=== PATIENT | male | born 1950 | race Caucasian/White ===

== ENCOUNTER → 2019-12-05 08:26 | Outpatient (BNVA) | payer MEDICARE, OTHER, SELFPAY | PROVIDERS: Family Provider Registered Nurse; PCP Registered Nurse; Visit Provider Registered Nurse | DX: E11.9 Type 2 diabetes mellitus without complications (principal) | CPT/HCPCS: 80053; 80061; 83036; 85025 ==

== ENCOUNTER 2020-04-27 | Outpatient (CLI) | payer MEDICARE, OTHER, SELFPAY ==
--- NOTE | 2020-04-27 11:16 | XRR_ITS ---
PROCEDURE INFORMATION: Exam: XR Left Ribs Exam date and time: 04/27/2020 11:43 AM Age: 69 years old Clinical indication: Pain; Other: Chest left ribs; Patient HX: Possible L side fractured ribs x 2 days; Additional info: Chest trauma TECHNIQUE: Imaging protocol: XR Left ribs. Views: 2 views. COMPARISON: No relevant prior studies available. FINDINGS: Bones/joints: Displaced fracture of the 6th and 7th ribs on the left. Subpulmonic effusion and adjacent airspace disease/atelectasis. XR/XR ribs LT 2V* [id number] IMPRESSION: Displaced fracture of the 6th and 7th ribs on the left laterally. Subpulmonic effusion and adjacent airspace disease/atelectasis. Pneumothorax not visualized although not excluded as a chest radiograph was not submitted. Correlate with prior CT chest versus chest radiograph.
--- NOTE | 2020-04-27 11:16 | XRR_ITS ---
PROCEDURE INFORMATION: Exam: XR Chest, 2 Views Exam date and time: 04/27/2020 11:43 AM Age: 69 years old Clinical indication: Left-sided chest pain; Patient HX: Possible left ribs fracture x 2 days; Additional info: Chest trama TECHNIQUE: Imaging protocol: XR of the chest Views: 2 views. COMPARISON: No relevant prior studies available. FINDINGS: Lungs: Mild atelectasis left lung base in the costophrenic angle. Airspace consolidation left retrocardiac region. Small amount of fluid in the subpulmonic region. Subtle lucency adjacent to the left heart border. Small apical pneumothorax. Subcutaneous emphysema adjacent to the fractured ribs on the left inferiorly. Pleural space: See Lungs finding. Heart/Mediastinum: Unremarkable. No cardiomegaly. Bones/joints: Unremarkable. XR/XR chest 2V* [id number] IMPRESSION: Mild atelectasis left lung base in the costophrenic angle. Airspace consolidation left retrocardiac region. Small amount of fluid in the subpulmonic region. Subtle lucency adjacent to the left heart border. Small apical pneumothorax. Subcutaneous emphysema adjacent to the fractured ribs on the left inferiorly.
== END 2020-04-27 23:00 | disposition home or self-care (01) ==
PROVIDERS: PCP Registered Nurse; Visit Provider Nurse Practitioner Family
DX: S22.42XA Multiple fractures of ribs, left side, initial encounter for closed fracture (principal); T79.7XXA Traumatic subcutaneous emphysema, initial encounter; X58.XXXA Exposure to other specified factors, initial encounter; R07.89 Other chest pain; J98.11 Atelectasis
CPT/HCPCS: 71046; 71100

== ENCOUNTER 2020-04-27 11:17 | Outpatient (CLI) | payer MEDICARE, OTHER, SELFPAY ==
--- NOTE | 2020-04-27 09:30 | CT_ITS ---
WS: [id number] CT CHEST TECHNIQUE: Contrast enhanced CT of the chest with coronal and sagittal reformatted images. CLINICAL INFORMATION: chest trauma COMPARISON: None. DLP: 919.[address] scans at [facility] use at least one of these dose optimization techniques: automat ed exposure control; mA and/or kV adjustment per patient size (includes targeted exams where dose is matched to clinical indication); or iterative reconstruction. FINDINGS: Multiple acute left-sided rib fractures left third, fourth, fifth, sixth, and seventh ribs anteriorly and laterally. Mild displacement of the left 6th and seventh rib fractures with associated subcutane ous emphysema and pleural fluid. No significant pneumothorax. Subsegmental atelectasis and partial co nsolidation left lower lobe with air bronchograms. Tiny right pleural effusion with subsegmental atel ectasis in the right lung base. Mild chronic emphysematous changes. TINY LEFT LATERAL APICAL AND ANTERIOR MEDIAL PNEUMOTHORAX MEASURING LESS THAN 10 MM IN MAXIMUM DIMENS ION. Normal thyroid gland. Normal caliber thoracic aorta. No mediastinal or hilar lymphadenopathy. No axil michael lymphadenopathy. Mild diffuse fatty infiltration the liver. Adrenal glands are normal. Small spl enule. Normal GE junction. Mild hypertrophic changes thoracic spine. Attempted JONNY Mariscal at 04/27/2020 11:56 AM. [facility] currently attempting to locate provider 04/27/2020 12:[address]/CT chest w con* [id number] IMPRESSION: 1. Multiple left-sided rib fractures described above with mild displacement of the 6th and seventh rib fractures. Tiny left pneumothorax. Recommend 12-24 pamela r interval follow-up with chest x-ray to ensure no progression. 2. Small left pleural effusion with partial consolidation and air bronchograms left lower lobe. 3. Small right pleural effusion with subsegmental atelectasis. 4. Mild chronic emphysematous changes. 5. Fatty liver
[2020-04-27 10:13] LABS: Blood Urea Nitrogen 16 mg/dL (8-23); Glomerular Filtration Rate 96.1 mL/min (90-130)
[2020-04-27] MEDS: iohexol 300 mg/mL 100 mL Btl IV (11:38)
== END 2020-04-27 11:18 | disposition home or self-care (01) ==
LOC: RAD 11:18
PROVIDERS: PCP Registered Nurse; Visit Provider Nurse Practitioner Family
DX: R93.89 Abnormal findings on diagnostic imaging of other specified body structures (principal); S22.42XA Multiple fractures of ribs, left side, initial encounter for closed fracture; X58.XXXA Exposure to other specified factors, initial encounter; J90 Pleural effusion, not elsewhere classified; J98.11 Atelectasis; K76.0 Fatty (change of) liver, not elsewhere classified; N28.9 Disorder of kidney and ureter, unspecified
CPT/HCPCS: 71260; 82565; 84520

== ENCOUNTER → 2020-06-16 09:19 | Outpatient (BNVA) | payer MEDICARE, OTHER, SELFPAY | PROVIDERS: PCP Registered Nurse; Visit Provider Registered Nurse | DX: E11.9 Type 2 diabetes mellitus without complications (principal) | CPT/HCPCS: 83036; 85025 ==

== ENCOUNTER 2020-12-14 15:27 | Outpatient (CLI) | payer MEDICARE, OTHER, SELFPAY ==
--- NOTE | 2020-12-14 15:45 | USCV_ITS ---
Eusebioyusra Mir Age: 70 Gender: M : 1950 Exam Date: 12/14/2020 15:49 Ordering Phys: Jag Gamez MD ([email or web address]) Technologist: Jennifer Arndt [place] [facility] [place]: aortic murmur BP: / HR: 70 Rhythm: Sinus Technical Quality: Fair MEASUREMENTS (Male / Female) Normal Values 2D ECHO LV Diastolic Diameter PLAX 5.1 cm 4.2 - 5.9 / 3.9 - 5.3 cm LV Systolic Diameter PLAX 3.1 cm LV Chamber Size 4.1 cm IVS Diastolic Thickness 1.4 cm 0.6 - 1.0 / 0.6 - 0.9 cm IVS Systolic Thickness 1.6 cm LVPW Diastolic Thickness 0.9 cm 0.6 - 1.0 / 0.6 - 0.9 cm LVPW Systolic Thickness 1.3 cm RV Chamber Size 3.1 cm LVOT Diameter 2.0 cm LV Ejection Fraction 2D Teich 69.8 % LV Ejection Fraction MOD 2C 67.9 % LV Ejection Fraction 2C AL 67.2 % LA Diameter 4.2 cm LA Width 3.4 cm LA Height 4.2 cm RA Width 3.2 cm RA Height 5.1 cm M-MODE LV Diastolic Diameter MM 5.2 cm 4.2 - 5.9 / 3.9 - 5.3 cm LV Systolic Diameter MM 3.1 cm LV Ejection Fraction MM Teich 70.4 % IVS Diastolic Thickness MM 1.4 cm 0.6 - 1.0 / 0.6 - 0.9 cm IVS Systolic Thickness MM 1.5 cm LVPW Diastolic Thickness MM 1.2 cm 0.6 - 1.0 / 0.6 - 0.9 cm LVPW Systolic Thickness MM 1.4 cm Aortic Annulus Diameter 3.4 cm LA Ao Ratio MM 1.3 MV E Point Septal Separation 0.3 cm DOPPLER AV Peak Velocity 218.0 cm/s LVOT Peak Velocity 95.0 cm/s AV Area Cont Eq vti 1.6 cm squared AV Area Cont Eq pk 1.4 cm squared MV Area PHT 3.0 cm squared Mitral E to A Ratio 1.0 MV E' Velocity 35.0 cm/s Mitral E to MV E' Ratio 6.3 Mitral E to LV E' Lateral Ratio 5.8 Mitral E to LV E' Septal Ratio 6.9 TR Peak Velocity 195.6 cm/s TR Peak Gradient 15.3 mmHg TR Mean Velocity 166.2 cm/s TR Mean Gradient 11.3 mmHg TR Velocity Time Integral 54.7 cm TV Peak E Velocity 59.0 cm/s PV Peak Velocity 70.0 cm/s RV Acceleration Time 0.1 s RV Ejection Time 0.3 s RV AcT/ET 0.3 FINDINGS Left Ventricle Normal left ventricular cavity size. Normal left ventricular systolic function. No regional wall motion abnormalities. Left ventricular ejection fraction is estimated at 70 %. Grade I/IV diastolic dysfunction (abnormal relaxation filling pattern), normal to mildly elevated filling pressures. Right Ventricle The right ventricle is normal in size and function. RVSP could not be calculated due to incomplete tricuspid regurgitation velocity profile. Right Atrium The right atrium is normal in size. Left Atrium The left atrium is normal in size. Mitral Valve Structurally normal mitral valve without significant stenosis or prolapse. There is no mitral regurgitation. Aortic Valve Moderate aortic valve calcification. Moderate aortic valve stenosis, mean gradient 10.5 mmHg, GINI 1.6 cm squared. Trace aortic valve regurgitation. Tricuspid Valve Trace tricuspid valve regurgitation. Pulmonic Valve Structurally normal pulmonic valve without significant stenosis. There is no pulmonic regurgitation. Pericardium Normal pericardium without effusion. Aorta Normal ascending aorta dimension. CONCLUSIONS 1-Normal left ventricular cavity size. Normal left ventricular systolic function. No regional wall motion abnormalities. Left ventricular ejection fraction is estimated at 70 %. Grade I/IV diastolic dysfunction (abnormal relaxation filling pattern), normal to mildly elevated filling pressures. 2-Moderate aortic valve calcification. Moderate aortic valve stenosis, mean gradient 10.5 mmHg, GINI 1.6 cm squared. Trace aortic valve regurgitation. 3-There is no pericardial effusion. 4-The right ventricle is normal in size and function. RVSP could not be calculated due to incomplete tricuspid regurgitation velocity profile. 5-Right atrial pressure is around 5 mm of mercury. 6-There are no prior echocardiogram studies to compare. Jag Gamez MD (Electronically Signed) Final Date: 16 December 2020 20:15 S
== END 2020-12-14 15:28 | disposition home or self-care (01) ==
LOC: US 15:29
PROVIDERS: PCP Registered Nurse; Visit Provider Internal Medicine Cardiovascular Disease
DX: I35.8 Other nonrheumatic aortic valve disorders (principal); I70.0 Atherosclerosis of aorta; I35.0 Nonrheumatic aortic (valve) stenosis
CPT/HCPCS: 93306

== ENCOUNTER → 2020-12-28 10:41 | Outpatient (BNVA) | payer MEDICARE, OTHER, SELFPAY | PROVIDERS: PCP Registered Nurse; Visit Provider Registered Nurse | DX: I10 Essential (primary) hypertension (principal); E11.9 Type 2 diabetes mellitus without complications | CPT/HCPCS: 80053; 80061; 83036; 85025 ==

== ENCOUNTER → 2020-12-30 08:37 | Outpatient (BNVA) | payer MEDICARE, OTHER, SELFPAY | PROVIDERS: PCP Registered Nurse; Visit Provider Registered Nurse | DX: E11.9 Type 2 diabetes mellitus without complications (principal) | CPT/HCPCS: 82043 ==

== ENCOUNTER → 2021-04-14 09:17 | Outpatient (BNVA) | payer MEDICARE, OTHER, SELFPAY | PROVIDERS: PCP Registered Nurse; Visit Provider Registered Nurse | DX: E11.9 Type 2 diabetes mellitus without complications (principal); N25.89 Other disorders resulting from impaired renal tubular function; I10 Essential (primary) hypertension | CPT/HCPCS: 80053; 83036 ==

== ENCOUNTER → 2021-10-24 09:17 | Outpatient (BNVA) | payer MEDICARE, OTHER, SELFPAY | PROVIDERS: PCP Registered Nurse; Visit Provider Registered Nurse | DX: E11.9 Type 2 diabetes mellitus without complications (principal) | CPT/HCPCS: 80053; 80061; 83036; 85025 ==

== ENCOUNTER → 2021-12-27 15:10 | Outpatient (BNVA) | payer MEDICARE, OTHER, SELFPAY | PROVIDERS: PCP Registered Nurse; Visit Provider Internal Medicine Cardiovascular Disease | DX: I25.10 Atherosclerotic heart disease of native coronary artery without angina pectoris (principal); I10 Essential (primary) hypertension; E11.9 Type 2 diabetes mellitus without complications | CPT/HCPCS: 99214 ==

== ENCOUNTER → 2022-04-18 10:26 | Outpatient (BNVA) | payer MEDICARE, OTHER, SELFPAY | PROVIDERS: PCP Registered Nurse; Visit Provider Registered Nurse | DX: E11.9 Type 2 diabetes mellitus without complications (principal); D22.9 Melanocytic nevi, unspecified | CPT/HCPCS: 80053; 83036 ==

== ENCOUNTER → 2022-06-28 10:01 | Outpatient (BNVA) | payer MEDICARE, OTHER, SELFPAY | PROVIDERS: PCP Registered Nurse; Visit Provider Internal Medicine Cardiovascular Disease | DX: I10 Essential (primary) hypertension (principal); I35.0 Nonrheumatic aortic (valve) stenosis; E78.1 Pure hyperglyceridemia; E11.9 Type 2 diabetes mellitus without complications; Z79.84 Long term (current) use of oral hypoglycemic drugs | CPT/HCPCS: 99214 ==

== ENCOUNTER → 2022-11-08 09:44 | Outpatient (BNVA) | payer MEDICARE, OTHER, SELFPAY | PROVIDERS: PCP Registered Nurse; Visit Provider Registered Nurse | DX: E11.9 Type 2 diabetes mellitus without complications (principal) | CPT/HCPCS: 80053; 83036 ==

== ENCOUNTER → 2023-05-14 09:08 | Outpatient (BNVA) | payer MEDICARE, OTHER, SELFPAY | PROVIDERS: PCP Registered Nurse; Visit Provider Registered Nurse | DX: E11.9 Type 2 diabetes mellitus without complications (principal); I10 Essential (primary) hypertension; E78.5 Hyperlipidemia, unspecified; G40.909 Epilepsy, unspecified, not intractable, without status epilepticus | CPT/HCPCS: 80053; 80061; 83036; 85025 ==

== ENCOUNTER → 2023-09-19 11:36 | Outpatient (BNVA) | payer MEDICARE, OTHER, SELFPAY | PROVIDERS: PCP Registered Nurse; Visit Provider Internal Medicine Cardiovascular Disease | DX: I10 Essential (primary) hypertension (principal); I25.10 Atherosclerotic heart disease of native coronary artery without angina pectoris; R00.0 Tachycardia, unspecified; R01.1 Cardiac murmur, unspecified; E11.9 Type 2 diabetes mellitus without complications; Z79.84 Long term (current) use of oral hypoglycemic drugs; I35.0 Nonrheumatic aortic (valve) stenosis | CPT/HCPCS: 99214 ==

== ENCOUNTER → 2023-12-18 09:15 | Outpatient (BNVA) | payer MEDICARE, OTHER, SELFPAY | PROVIDERS: PCP Registered Nurse; Visit Provider Registered Nurse | DX: E11.9 Type 2 diabetes mellitus without complications (principal); Z12.11 Encounter for screening for malignant neoplasm of colon; I10 Essential (primary) hypertension | CPT/HCPCS: 80053; 80061; 83036; 83721; 85025 ==

== ENCOUNTER → 2024-01-01 10:36 | Outpatient (BNVA) | payer MEDICARE, OTHER, SELFPAY | PROVIDERS: PCP Registered Nurse; Referring Provider Registered Nurse; Visit Provider Surgery | DX: Z12.11 Encounter for screening for malignant neoplasm of colon (principal) | CPT/HCPCS: 99024; 99203 ==

== ENCOUNTER → 2024-03-26 08:28 | Outpatient (BNVA) | payer MEDICARE, OTHER, SELFPAY | PROVIDERS: PCP Registered Nurse; Visit Provider Registered Nurse | DX: E11.9 Type 2 diabetes mellitus without complications (principal); I10 Essential (primary) hypertension; E78.1 Pure hyperglyceridemia | CPT/HCPCS: 80048; 80061; 82607; 83036 ==

== ENCOUNTER 2024-05-15 05:50 | Day surgery (SDC) | payer MEDICARE, OTHER, SELFPAY ==
--- NOTE | 2024-05-15 05:23 | W.PM.OPSFHP ---
Same Day Surgery H&P Indication for Procedure/HPI DATE OF PROCEDURE: May 15, 2024 CHIEF COMPLAINT/INDICATIONFOR SURGICAL PROCEDURE: need for screening colonoscopy PREOP DIAGNOSIS: need for screening colonoscopy PLANNED PROCEDURE: Operation Date: 05/15/24 07:00 Proposed Procedures p Colonoscopy 77585, G0121, Z12.11(Not Applicable) - Moshe Olivares MD Medications/Allergies* Home Medications Medication Instructions Recorded Confirmed Type cholecalciferol (vitamin D3) 1,250 1,250 mcg PO DAILY 05/17/20 05/13/24 History mcg (50,000 unit) tablet sodium bicarbonate 650 mg tablet 1,300 mg PO BID renal tubular 09/19/23 05/13/24 History acidosis finasteride 5 mg tablet 5 mg PO DAILY 05/13/24 05/13/24 History levetiracetam 500 mg tablet 1,000 mg PO BID 05/13/24 05/13/24 History metformin 1,000 mg tablet 1,000 mg PO BID 05/13/24 05/13/24 History Allergies/Adverse Reactions Allergy/AdvReac Type Severity Reaction Status Date / Time No Known Allergies Allergy Verified 03/26/24 08:14 Pertinent History/Comorbid Conditions* Medical History (Updated 09/19/23 @ 14:54 by Joaquin Bella MD) Aortic stenosis Murmur, cardiac BPH (benign prostatic hyperplasia) Seizure disorder Diabetes mellitus type 2, controlled Tachycardia CAD (coronary artery disease) Essential hypertension Family History (Updated 12/09/19 @ 08:44 by Virginia Carson LPN) Diabetes Hypertension Stroke Social History Smoking and tobacco/nicotine status: never used tobacco/nicotine Alcohol intake: never Substance/Drug Use: never Adopted: No Caregiver/support person: No Lives independently: Yes Marital status: Single Do you think of yourself as: Straight/Heterosexual Current gender identity: Male Agree to transfusion: Yes Pertinent Exam Findings alert, oriented x 3, clear to auscultation bilaterally and regular rate & rhythm Recommendations Surgery/Procedure today Coding Level of Care Code Acute Code for Chg Fwd
[2024-05-15 06:03] VITALS: BP 126/79; PULSE 55; RESP 18; TEMP 36.6; O2SAT 95; BMI 24.3
[2024-05-15] MEDS: sodium chloride 0.9% 1,000 ML 30 ML IV (06:10)
[2024-05-15 06:15] LABS: Glucose Point of Care 136 mg/dL (70-110)
--- NOTE | 2024-05-15 06:55 | ANES.PREANE2 ---
Pre-Anesthetic Assessment Height/Weight: Height 1.83 m Weight 81.193 kg Temp Pulse Resp BP Pulse Ox O2 Del Method 97.8 F 55 L 18 126/79 95 Room Air 05/15/24 06:03 05/15/24 06:03 05/15/24 06:03 05/15/24 06:03 05/15/24 06:03 05/15/24 06:03 Preop Diagnosis: need for screening colonoscopy Operation Date: 05/15/24 07:00 Proposed Procedures p Colonoscopy 11254, G0121, Z12.11(Not Applicable) - Moshe Olivares MD Was Beta Russ taken within 24 hours: Yes Was Clonidine taken within 24 hours: N/A Last intake: Intake Last Liquid Date 05/14/24 Last Liquid Time 21:00 Last Solid Date 05/13/24 Last Solid Time 14:00 Social No alcohol and No tobacco Exam alert, oriented x 3, clear to auscultation bilaterally and regular rate & rhythm Airway Submandibular: within normal limits Cervical ROM: within normal limits Mallampati: Class II Dentition: full History/ROS No significant history except as noted and No significant complaints Pulmonary None reported CV/HEM Hypertension None reported Hepatic None reported GI None reported Metabolic Diabetes Mellitus Diet controlled [facility] [place] None reported Neuropsych None reported Anesthetic Plan ASA status: 2 Anesthesia: Anesthesia Evaluation and MAC Risk of > 500 ml blood loss (7ml/kg in children): No Medications/Allergies Home Medications Medication Instructions Recorded Confirmed Last Taken Type blood sugar diagnostic (ReliOn #10 ea 10/03/19 03/26/24 Unknown Rx Prime Test Strips) blood sugar diagnostic (OneTouch #100 ea 12/22/19 03/26/24 Unknown Rx Verio test strips) blood sugar diagnostic (OneTouch #100 ea 03/16/20 03/26/24 Unknown Rx Ultra Blue Test Strip) cholecalciferol (vitamin D3) 1,250 1,250 mcg PO DAILY 05/17/20 05/13/24 05/14/24 History mcg (50,000 unit) tablet amlodipine 10 mg tablet 10 mg PO DAILY #90 tabs 09/19/23 05/13/24 05/15/24 05:00 Rx sodium bicarbonate 650 mg tablet 1,300 mg PO BID renal tubular 09/19/23 05/13/24 05/14/24 History acidosis atorvastatin 80 mg tablet 80 mg PO DAILY #90 tabs 12/18/23 05/13/24 05/14/24 Rx lisinopril 20 mg tablet 20 mg PO BID #180 tabs 12/18/23 05/13/24 05/14/24 Rx metoprolol succinate 25 mg 12.5 mg (1/2 x 25 mg) PO DAILY #45 03/26/24 05/13/24 05/15/24 05:00 Rx tablet,extended release 24 hr tabs finasteride 5 mg tablet 5 mg PO DAILY 05/13/24 05/13/24 05/14/24 History levetiracetam 500 mg tablet 1,000 mg PO BID 05/13/24 05/13/24 05/14/24 History metformin 1,000 mg tablet 1,000 mg PO BID 05/13/24 05/13/24 05/14/24 History Allergies Allergy/AdvReac Type Severity Reaction Status Date / Time No Known Allergies Allergy Verified 03/26/24 08:14 Current Medications Generic Name Dose Route Start Last Admin Trade Name Freq PRN Reason Stop Dose Admin Sodium Chloride 1,000 mls @ 30 mls/hr 05/15/24 06:00 05/15/24 06:10 Sodium Chloride 0.9% IV 05/16/24 05:59 30 mls/hr .Q24H KRAIG Administration PFSH Anesthesia Medical History Aortic stenosis Murmur, cardiac BPH (benign prostatic hyperplasia) Seizure disorder Diabetes mellitus type 2, controlled Tachycardia CAD (coronary artery disease) Essential hypertension Family History Other Diabetes Hypertension Stroke Social History Smoking and tobacco/nicotine status: never used tobacco/nicotine Alcohol intake: never Substance/Drug Use: never Adopted: No Caregiver/support person: No Lives independently: Yes Marital status: Single Do you think of yourself as: Straight/Heterosexual Current gender identity: Male Agree to transfusion: Yes Data Anesthesia Cardiac Studies: Echocardiogram Ultrasound 12/14/20
[2024-05-15 07:48] VITALS: BP 95/59; PULSE 56; RESP 20; TEMP 36.1; O2SAT 95
[2024-05-15 08:15] VITALS: BP 105/64; PULSE 64; RESP 16; O2SAT 95
--- NOTE | 2024-05-15 08:20 | ANE.PACU2 ---
Inpatient post-anesthesia follow up: Airway intact: Yes Vital signs: Temperature 97.0 F Pulse Rate 64 Respiratory Rate 16 Blood Pressure 105/64 Pulse Oximetry 95 Oxygen Delivery Me thod Room Air Oxygen Flow Rate 3 Fraction of Inspir ed Oxygen Hydration adequate: Yes Nausea and vomiting: No Pain level: 1 Mental status: Baseline
== END 2024-05-15 08:20 | disposition home or self-care (01) ==
PROVIDERS: PCP Registered Nurse; Visit Provider Surgery
PROC: 0DJD8ZZ Inspection of Lower Intestinal Tract, Via Natural or Artificial Opening Endoscopic (ICD-10-PCS; CPT 45378; principal; 2024-05-15 07:00)
DX: Z12.11 Encounter for screening for malignant neoplasm of colon (principal); D12.2 Benign neoplasm of ascending colon; D12.0 Benign neoplasm of cecum; D12.4 Benign neoplasm of descending colon; D12.5 Benign neoplasm of sigmoid colon; D12.3 Benign neoplasm of transverse colon; D12.8 Benign neoplasm of rectum; N40.0 Benign prostatic hyperplasia without lower urinary tract symptoms; E11.9 Type 2 diabetes mellitus without complications; I25.10 Atherosclerotic heart disease of native coronary artery without angina pectoris; I10 Essential (primary) hypertension; Z79.84 Long term (current) use of oral hypoglycemic drugs
CPT/HCPCS: 36416; 45380; 45385; 82962; 88305; J2704; J3490; J7030

== ENCOUNTER → 2024-07-09 08:04 | Outpatient (BNVA) | payer MEDICARE, OTHER, SELFPAY | PROVIDERS: PCP Registered Nurse; Visit Provider Surgery | DX: Z09 Encounter for follow-up examination after completed treatment for conditions other than malignant neoplasm (principal) | CPT/HCPCS: 99213 ==

== ENCOUNTER → 2024-09-15 08:36 | Outpatient (BNVA) | payer MEDICARE, OTHER, SELFPAY | PROVIDERS: PCP Registered Nurse; Visit Provider Internal Medicine Cardiovascular Disease | DX: I35.0 Nonrheumatic aortic (valve) stenosis (principal); I25.10 Atherosclerotic heart disease of native coronary artery without angina pectoris; E78.5 Hyperlipidemia, unspecified; I10 Essential (primary) hypertension; Z87.891 Personal history of nicotine dependence | CPT/HCPCS: 99214 ==

== ENCOUNTER 2024-10-07 06:38 | Outpatient (CLI) | payer MEDICARE, OTHER, SELFPAY ==
--- NOTE | 2024-10-07 07:00 | USCV_ITS ---
Mir Quinones Age: 74 Gender: M : 1950 Exam Date: 10/07/2024 07:12 Ordering Phys: Jag Gamez MD ([email or web address]) Technologist: VIJAY Exam Location: [facility] [place] Indication: AORTIC STENOSIS BP: 138 / 79 HR: 72 Rhythm: Sinus Technical Quality: Adequate MEASUREMENTS (Male / Female) Normal Values 2D ECHO LV Diastolic Diameter PLAX 4.4 cm 4.2 - 5.9 / 3.9 - 5.3 cm IVS Diastolic Thickness 1.5 cm 0.6 - 1.0 / 0.6 - 0.9 cm IVS Systolic Thickness 2.3 cm LVPW Diastolic Thickness 1.7 cm 0.6 - 1.0 / 0.6 - 0.9 cm LVPW Systolic Thickness 2.4 cm LVOT Diameter 2.0 cm LV Ejection Fraction 2D Teich 68.8 % LV Ejection Fraction MOD 4C 62.4 % LV Ejection Fraction MOD 2C 54.4 % LV Ejection Fraction 2C AL 55.9 % LA Diameter 4.1 cm RA Systolic Volume 4C AL 30.3 ml RA Systolic Volume 4C MOD 29.9 ml LA Sys Volume AL 20.4 cm cubed LA Sys Volume Index AL 9.7 cm cubed/m squared Aorta at Sinotubular Diameter 2.9 cm M-MODE LA Ao Ratio MM 1.1 AV Cusp Separation MM 0.6 cm DOPPLER AV Peak Velocity 254.8 cm/s LVOT Peak Velocity 77.0 cm/s AV Area Cont Eq vti 1.0 cm squared AV Area Cont Eq pk 0.9 cm squared MV Peak Velocity 76.0 cm/s MV Area PHT 3.0 cm squared Mitral E to A Ratio 1.0 TR Peak Velocity 237.0 cm/s TR Peak Gradient 22.5 mmHg TR Mean Velocity 208.0 cm/s TR Mean Gradient 17.6 mmHg TR Velocity Time Integral 55.4 cm TV Peak E Velocity 45.0 cm/s PV Peak Velocity 100.0 cm/s RV Ejection Time 0.4 s FINDINGS Left Ventricle Left ventricle is normal size. LV systolic function is normal with EF of 55 to 60%. No regional wall motion abnormalities are seen. Right Ventricle Normal in size and function Right Atrium Normal in size Left Atrium Normal in size Mitral Valve Structurally normal mitral valve. Mild mitral regurgitation. Aortic Valve Aortic valve is thickened. Moderate aortic stenosis with aortic valve area of 1.01 cm2 and mean gradient across aortic valve of 15mmhHg. Tricuspid Valve Insufficient TR jet to calcaulate RVSP Pulmonic Valve Not well visualized Pericardium Normal Aorta Normal in size IVC Not well visualized CONCLUSIONS LV systolic function is normal with EF of 55 to 60%. Mild mitral regurgitation. Moderate aortic stenosis. Compared to prior echocardiogram from 2020, aortic stenosis has progressed. Primo Dawson MD (Electronically Signed) Final Date: 10 October 2024 12:15 S
== END 2024-10-07 06:39 | disposition home or self-care (01) ==
PROVIDERS: PCP Registered Nurse; Visit Provider Internal Medicine Cardiovascular Disease
DX: I35.2 Nonrheumatic aortic (valve) stenosis with insufficiency (principal)
CPT/HCPCS: 93306

== ENCOUNTER → 2024-11-05 08:32 | Outpatient (BNVA) | payer MEDICARE, OTHER, SELFPAY | PROVIDERS: Family Provider Registered Nurse; PCP Registered Nurse; Visit Provider Registered Nurse | DX: E11.9 Type 2 diabetes mellitus without complications (principal) | CPT/HCPCS: 80053; 80061; 83036; 83721; 85025 ==

== ENCOUNTER → 2025-03-23 10:35 | Outpatient (BNVA) | payer MEDICARE, OTHER, SELFPAY | PROVIDERS: Family Provider Registered Nurse; PCP Registered Nurse; Visit Provider Registered Nurse | DX: E11.9 Type 2 diabetes mellitus without complications (principal) | CPT/HCPCS: 80053; 83036 ==

== ENCOUNTER 2025-04-27 13:14 | Inpatient (IN) | payer MEDICARE, OTHER, SELFPAY ==
[2025-04-27] VITALS (9 sets, daily range): BP systolic 116–136; BP diastolic 50–73; PULSE 50–74; RESP 10–19; TEMP 36.5; O2SAT 89–93
--- OUTSIDE RECORDS SUMMARY | 2025-04-27 13:21 | XMS_ITS | Encounter Summary ---
Author Organization [employer] [facility] Address [address] [place] [address] Care Team Providers Care Bpm Solution Architect Name Role Phone Rafa Farris HYDROELECTRIC STATION OPERATOR Primary Care Provider Encounter Details Date Type Department Care Team (Late st Contact Info) Description 05/13/2020 Ancillary Orders [facility] [facility] [address] [place] [address] Meredith Tran HYDROELECTRIC STATION OPERATOR [address] [place] [address] Fracture of one rib Social History Tobacco Use Types Packs/Day Years Used Date Smoking Tobacco: Never Assessed Sex and Gender Information Value Date Recorded Sex Assigned at Not on file 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 No / Unsure 05/13/2020 2:59 PM CDT documented as of this encounter Plan of Treatment Not on file documented as of this encounter Results * XR CHEST PA AND LATERAL 2 VW (05/13/2020 3:12 PM CDT) Anatomical Region Laterality Modality Chest Computed Radiogr aphy 05/13/2020 3:12 PM CDT Impressions 05/14/2020 9:34 AM CDT IMPRESSION: Interval improvement in left-sided pleural parenchymal abnormalities present previously without current evidence of an acute pulmonary process. Redemonstration of multiple left rib fractures. [id number] Narrative 05/14/2020 9:34 AM CDT Exam: XR CHEST PA AND LATERAL 2 VW Date/Time of Exam: 05/13/2020 3:12 PM Reason For Exam: See Diagnosis. Diagnosis: Fracture of one rib. Comparison: 04/26/2020. Findings: The cardiomediastinal structures appear stable and within normal limits. There has been apparent interval resolution of the left pleural effusion and adjacent basilar pulmonary opacity present previously. There is no current evidence of focal consolidation, pleural effusion, or appreciable pneumothorax. Left-sided rib fractures are redemonstrated. Procedure Note Raghav Miranda, DO - 05/14/2020 Exam: XR CHEST PA AND LATERAL 2 VW Date/Time of Exam: 05/13/2020 3:12 PM Reason For Exam: See Diagnosis. Diagnosis: Fracture of one rib. Comparison: 04/26/2020. Findings: The cardiomediastinal structures appear stable and within normal limits. There has been apparent interval resolution of the left pleural effusion and adjacent basilar pulmonary opacity present previously. There is no current evidence of focal consolidation, pleural effusion, or appreciable pneumothorax. Left-sided rib fractures are redemonstrated. IMPRESSION: Interval improvement in left-sided pleural parenchymal abnormalities present previously without current evidence of an acute pulmonary process. Redemonstration of multiple left rib fractures. [id number] Meredith BUCKP DIAGNOSTIC IMAGING ORDERABL ES Final Result documented in this encounter Visit Diagnoses Diagnosis Fracture of one rib Closed fracture of one rib Fracture of one rib Closed fracture of one rib documented in this encounter Care Teams Bpm Solution Architect Relationship Specialty Start Date End Date Rafa Farris FNP [address] [place] [phone] PCP - General Nurse Practitioner Family 06/12/19 documented as of this encounter
--- OUTSIDE RECORDS SUMMARY | 2025-04-27 13:21 | XMS_ITS | Clinical Summary ---
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 Gender Identity Not on file Sexual Orientation Not on file Plan of Treatment Health Maintenance Due Date Last Done Comments DTAP/TDAP/TD VACCINES (1 - Tdap) 1970 COLORECTAL SCREENING 1996 Colorectal Cancer Screening 1996 FIT-DNA Q 3 years 1996 FIT/FOBT Q 1 year 1996 Flex Sig/CT Colonography Q 5 years 1996 PNEUMOCOCCAL VACCINE 50+ YEARS (1 of 1 - PCV) 06/30/20 ZOSTER VACCINE (1 of 2) 2001 INFLUENZA VACCINE (#1) 2025 RSV VACCINE (60+ or ) (1 - 1-dose 75+ series) 2026 Insurance MEDICARE PART A AND B TwoF INS [place] Care Teams Crm Consultant Relationship Specialty Start Date End Date Rafa Farris FNP [address] [place] [address] PCP - General Nurse Practitioner Family 06/12/19
--- OUTSIDE RECORDS SUMMARY | 2025-04-27 13:21 | XMS_ITS | Encounter Summary ---
Author Organization [employer] [facility] Address [address] [place] [address] Care Team Providers Care Flatwork Catcher Name Role Phone Kaleigh Rafa FULLER Primary Care Provider Encounter Details Date Type Department Care Team (Late st Contact Info) Description 06/12/2019 Ancillary Orders [employer] [place] [address] [place] [phone] Rafa Farris FNP [address] [place] [address] Cellulitis of fifth toe, right Social History Tobacco Use Types Packs/Day Years Used Date Smoking Tobacco: Never Assessed Sex and Gender Information Value Date Recorded Sex Assigned at Not on file 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 Exam: XR FOOT 3+ VW RIGHT Date/Time of Exam: 06/12/2019 2:51 PM Reason For Exam: See Diagnosis. Diagnosis: Cellulitis of fifth toe, right. Comparison: None FINDINGS: PA, lateral and oblique projections show no acute fracture or dislocation. Moderate degenerative changes about the midfoot and interphalangeal joints. Also moderate arthropathy first metatarsal-phalangeal joint. Adjacent soft tissue swelling. Moderate to prominent calcaneal enthesopathy. No soft tissue air. Narrative Procedure Note Camilo Heller, DO - 06/12/2019 IMPRESSION: Please see below. Exam: XR FOOT 3+ VW RIGHT Date/Time of Exam: 06/12/2019 2:51 PM Reason For Exam: See Diagnosis. Diagnosis: Cellulitis of fifth toe, right. Comparison: None FINDINGS: PA, lateral and oblique projections show no acute fracture or dislocation. Moderate degenerative changes about the midfoot and interphalangeal joints. Also moderate arthropathy first metatarsal-phalangeal joint. Adjacent soft tissue swelling. Moderate to prominent calcaneal enthesopathy. No soft tissue air. Rafa FULLER DIAGNOSTIC IMAGING ORDERABL ES Final Result documented in this encounter Visit Diagnoses Diagnosis Cellulitis of fifth toe, right Cellulitis and abscess of toe, unspecified Cellulitis of fifth toe, right Cellulitis and abscess of toe, unspecified documented in this encounter Care Teams Flatwork Catcher Relationship Specialty Start Date End Date Rafa Farris FNP [address] [place] [address] PCP - General Nurse Practitioner Family 06/12/19 documented as of this encounter
--- OUTSIDE RECORDS SUMMARY | 2025-04-27 13:21 | XMS_ITS | Clinical Summary ---
Author Organization [employer] Address [address] 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
--- OUTSIDE RECORDS SUMMARY | 2025-04-27 13:21 | XMS_ITS | Encounter Summary ---
Author Organization [facility] Address [address] [place] [address] Care Team Providers Care Factory Lay Out Engineer Name Role Phone Rafa Farris LINOTYPE MACHINIST Primary Care Provider [phone] Encounter Details Date Type Department Care Team (Late st Contact Info) Description 04/26/2020 Ancillary Orders [facility] Admitting [address] [place] [address] Meredith Tran FNP 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 No / Unsure 04/26/2020 3:53 PM CDT documented as of this encounter Plan of Treatment Not on file documented as of this encounter Results * XR RIBS UNILATERAL 2 VW LEFT (04/26/2020 4:09 PM CDT) Anatomical Region Laterality Modality Chest Computed Radiogr aphy 04/26/2020 4:09 PM CDT Impressions 04/26/2020 4:37 PM CDT IMPRESSION: See below. Exam: XR RIBS UNILATERAL 2 VW LEFT Date/Time of Exam: 04/26/2020 4:09 PM Reason For Exam: See Diagnosis. Diagnosis: Trauma of chest, initial encounter. Findings: There are displaced fractures of the lateral left sixth and seventh ribs. There is a nondisplaced fracture of the posterior left fourth rib. [id number] Narrative Procedure Note Dominic Preston MD - 04/26/2020 IMPRESSION: See below. Exam: XR RIBS UNILATERAL 2 VW LEFT Date/Time of Exam: 04/26/2020 4:09 PM Reason For Exam: See Diagnosis. Diagnosis: Trauma of chest, initial encounter. Findings: There are displaced fractures of the lateral left sixth and seventh ribs. There is a nondisplaced fracture of the posterior left fourth rib. [id number] Meredith Tran LINOTYPE MACHINIST DIAGNOSTIC IMAGING ORDERABL ES Final Result * XR CHEST PA AND LATERAL 2 VW (04/26/2020 4:09 PM CDT) Anatomical Region Laterality Modality Chest Computed Radiogr aphy 04/26/2020 4:09 PM CDT Impressions 04/26/2020 4:37 PM CDT IMPRESSION: See below. Exam: XR CHEST PA AND LATERAL 2 VW Date/Time of Exam: 04/26/2020 4:09 PM Reason For Exam: See Diagnosis. Diagnosis: Chest wall trauma, initial encounter. Findings: There is mild opacity in the left lower lung which could represent atelectasis or lung contusion. There are ill-defined left-sided rib fractures with a small amount of gas in the left-sided chest wall. There is a questionable tiny left apical pneumothorax. Recommend further evaluation with chest CT. [id number] Narrative Procedure Note Dominic Preston MD - 04/26/2020 IMPRESSION: See below. Exam: XR CHEST PA AND LATERAL 2 VW Date/Time of Exam: 04/26/2020 4:09 PM Reason For Exam: See Diagnosis. Diagnosis: Chest wall trauma, initial encounter. Findings: There is mild opacity in the left lower lung which could represent atelectasis or lung contusion. There are ill-defined left-sided rib fractures with a small amount of gas in the left-sided chest wall. There is a questionable tiny left apical pneumothorax. Recommend further evaluation with chest CT. [id number] Meredith FULLER DIAGNOSTIC IMAGING ORDERABL ES Final Result documented in this encounter Visit Diagnoses Diagnosis Chest wall trauma, initial encounter Trauma of chest, initial encounter Chest wall trauma, initial encounter Trauma of chest, initial encounter documented in this encounter Care Teams Factory Lay Out Engineer Relationship Specialty Start Date End Date Rafa Farris FNP [address] [place] [address] PCP - General Nurse Practitioner Family 06/12/19 documented as of this encounter
--- NOTE | 2025-04-27 13:23 | ECG_ITS ---
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 Measurements Intervals [place] Rate: 56 P: 48 [place]: 157 QRS: -13 QRSD: 109 T: 16 QT: 408 QTc: 394 Interpretive Statements SINUS BRADYCARDIA MINIMAL VOLTAGE CRITERIA FOR LVH, CONSIDER NORMAL VARIANT [MEETS CRITERIA IN ONE OF: R(aVL), S(V1), R(V5), R(V5/V6)+S(V1)] No previous ECG available for comparison Electronically Signed On 04-30-2025 10:28:14 CDT by Primo Dawson M.D. [id number]
--- NOTE | 2025-04-27 13:40 | CTR_ITS ---
PROCEDURE INFORMATION: Exam: CT Chest With Contrast; Diagnostic Exam date and time: 04/27/2025 3:32 PM Age: 74 years old Clinical indication: Injury or trauma; Fall; Generalized; Blunt trauma (contusions or hematomas); Additional info: Thrown from horse; R back/abdominal pain TECHNIQUE: Imaging protocol: Diagnostic computed tomography of the chest with contrast. Radiation optimization: All CT scans at this facility use at least one of these dose optimization techniques: automated exposure control; mA and/or kV adjustment per patient size (includes targeted exams where dose is matched to clinical indication); or iterative reconstruction. Contrast material: OMNIPAQUE 350; Contrast volume: 100 ml; Contrast route: INTRAVENOUS (IV); COMPARISON: CR XR chest 1V portable [id number] 04/27/2025 3:00 PM RADIATION DOSE METRICS: Total DLP (mGy-cm): 1310.6 FINDINGS: Lungs: There is large right lower lobe parenchymal densities with air bronchograms. These findings correspond to alveolar pneumonia. The lungs are otherwise clear. No masses. Pleural spaces: There is eventration of the right hemidiaphragm. No pneumothorax. No pleural effusion. Heart: Coronary artery calcifications. No cardiomegaly. No pericardial effusion. Lymph nodes: Unremarkable. No enlarged lymph nodes. Vasculature: Unremarkable. No aortic aneurysm. Bones/joints: Thoracic spine osteoarthritis. No acute fracture. Soft tissues: Unremarkable. PROCEDURE INFORMATION: Exam: CT Abdomen And Pelvis With Contrast Exam date and time: 04/27/2025 3:32 PM Age: 74 years old Clinical indication: Injury or trauma; Fall; Generalized; Blunt trauma (contusions or hematomas); Additional info: Thrown from horse; R back/abdominal pain TECHNIQUE: Imaging protocol: Computed tomography of the abdomen and pelvis with contrast. Radiation optimization: All CT scans at this facility use at least one of these dose optimization techniques: automated exposure control; mA and/or kV adjustment per patient size (includes targeted exams where dose is matched to clinical indication); or iterative reconstruction. Contrast material: OMNIPAQUE 350; Contrast volume: 100 ml; Contrast route: INTRAVENOUS (IV); COMPARISON: CR XR chest 1V portable [id number] 04/27/2025 3:00 PM RADIATION DOSE METRICS: Total DLP (mGy-cm): 1310.6 FINDINGS: Liver: Normal. No mass. Gallbladder and biliary ducts: Normal. No calcified stones. No ductal dilation. Pancreas: Normal. No ductal dilation. Spleen: Normal. No splenomegaly. Adrenal glands: Normal. No mass. Kidneys and ureters: Normal. No hydronephrosis. Stomach and bowel: Sigmoid colon diverticulosis. No obstruction. No mucosal thickening. Appendix: No evidence of appendicitis. Intraperitoneal space: Unremarkable. No free air. No significant fluid collection. Vasculature: Unremarkable. No abdominal aortic aneurysm. Lymph nodes: Unremarkable. No enlarged lymph nodes. Urinary bladder: Unremarkable as visualized. Reproductive: Unremarkable as visualized. Bones/joints: Lumbar spine osteoarthritis No acute fracture. Soft tissues: Unremarkable. CT/CT chest abdpel w/*[id number] IMPRESSION: 1. Large right lower lobe alveolar pneumon 0 1 placenta new 2. Coronary artery calcifications IMPRESSION: 1. No acute findings. 2. Sigmoid colon diverticulosis 3. Lumbar spine osteoarthritis
--- NOTE | 2025-04-27 13:41 | XRR_ITS ---
PROCEDURE INFORMATION: Exam: XR Chest Exam date and time: 04/27/2025 2:03 PM Age: 74 years old Clinical indication: Injury or trauma; Other: Thrown from horse; Blunt trauma (contusions or hematomas) TECHNIQUE: Imaging protocol: Radiologic exam of the chest. Views: 1 view. COMPARISON: CR XR chest 2V* [id number] 04/27/2020 11:36 AM FINDINGS: Lungs: Unremarkable. No consolidation. Pleural spaces: Unremarkable. No pleural effusion. No pneumothorax. Heart/Mediastinum: Unremarkable. No cardiomegaly. Bones/joints: Unremarkable. XR/XR chest 1V portable [id number] IMPRESSION: No acute findings.
--- NOTE | 2025-04-27 13:41 | ED_ITS ---
Documented by User: BRENDA Rolle 04/28/25 10:21 HPI - Back Pain/Injury 2 General: Chief Complaint: ER Hold Stated Complaint: fall/right back/side pain Time Seen by Provider: 04/27/25 13:15 Source: patient Mode of arrival: ambulatory Limitations: no limitations History of Present Illness: Patient is a nice 74-year-old male presents to ED today from the walk-in clinic for further evaluation. Patient states he was thrown from a horse 2 days ago and landed onto the right side of his back. He denies striking his head or LOC. He is not having any neck pain. He has continued to have pain to his right posterior ribs. He is reporting painful inhalation. Walk-in clinic documentation is reporting tenderness to palpation of his right upper quadrant. He was sent to ED for further evaluation as they were concerned for possible pneumothorax, multiple rib fractures, liver injury, etc. Patient arrives seemingly in no acute distress. Oxygen was mildly low at triage at 89%. MD elicited complaint: back injury Pertinent past history: recent trauma Onset (ago): day(s) Timing: constant Severity: moderate Similar Symptoms Previously: No Location: right upper back Radiation: none Exacerbating factors: other (deep inhalation) Relieving factors: none Associated symptoms: Reports no associated symptoms; Deny abdominal pain, chills, change in bowel habits, fatigue, fever(s), hematuria, nausea or vomiting Work related injury: No Related Data Home Medications ?Medication ?Instructions ?Recorded ?Confirmed cholecalciferol (vitamin D3) 1,250 1,250 mcg PO DAILY 05/17/20 04/28/25 mcg (50,000 unit) tablet sodium bicarbonate 650 mg tablet 1,300 mg PO BID renal tubular 09/19/23 04/28/25 acidosis Previous Rx's ?Medication ?Instructions ?Recorded blood sugar diagnostic (ReliOn #10 ea 10/03/19 Prime Test Strips) blood sugar diagnostic (OneTouch #100 ea 12/22/19 Verio test strips) blood sugar diagnostic (OneTouch #100 ea 03/16/20 Ultra Blue Test Strip) lisinopril 20 mg tablet 20 mg PO BID #180 tabs 11/12 amlodipine 10 mg tablet 10 mg PO DAILY #90 tabs 11/01 04/24 levetiracetam 500 mg tablet See Rx Instructions .Route 03/16/25 .COMPLEX #360 tabs sildenafil 50 mg tablet (Viagra) 50 - 100 mg (1 - 2 x 50 mg) PO 03/16/25 DAILY PRN sexual activity 30 days #10 tabs metoprolol succinate 25 mg 12.5 mg (1/2 x 25 mg) PO DA YAMIL #45 03/17/25 tablet,extended release 24 hr tabs finasteride 5 mg tablet See Rx Instructions .Route 0 04/17/25 .COMPLEX #90 tabs Allergies Allergy/AdvReac Type Severity Reaction Status Date / Time No Known Allergies Allergy Verified 04/27/25 12:41 Review of Systems 2 Const: Denies: fever(s), chills, body aches, fatigue or malaise Card: Denies: chest pain Resp: Denies: dyspnea GI: Denies: abdominal pain, nausea, vomiting, diarrhea or change in bowel habits : Denies: flank pain or hematuria Musc: Reports: back pain; Denies: neck pain, extremity pain, extremity swelling, joint pain, joint swelling or joint redness Skin/Breast: Denies: rash Neuro: Denies: headache(s), numbness in extremities, weakness in extremities, sensory changes or dizziness PFSH ED 2 PFSH: Medical History Aortic stenosis Murmur, cardiac BPH (benign prostatic hyperplasia) Seizure disorder Diabetes mellitus type 2, controlled Tachycardia CAD (coronary artery disease) Essential hypertension Family History Other Diabetes Hypertension Stroke Social History (Updated 04/27/25 @ 19:16 by Julito Nieto MD) Smoking and tobacco/nicotine status: never used tobacco/nicotine Alcohol intake: current Alcohol intake frequency: holidays/special occasions only Substance/Drug Use: never Additional social history: 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 He is companied by his Mago and he wants full code as discussed with myself and Mago on 04/27/2025 by Julito Nieto MD Adopted: No Caregiver/support person: No Lives independently: Yes Marital status: Single Current occupational status: retired Do you think of yourself as: Straight/Heterosexual Current gender identity: Male Agree to transfusion: Yes Physical Exam 2 Const: COMMON NORMALS: no acute distress, average body habitus, no limitations, healthy appearing, alert and well nourished GENERAL APPEARANCE: cooperative HENMT: COMMON NORMALS: normocephalic and atraumatic HEAD & SCALP: normal to inspection, normocephalic and atraumatic Neck/C-Spine: COMMON NORMALS: full ROM CERVICAL SPINE: Yes cervical ROM normal, No pain with cervical ROM, No Cervical spine tenderness, No step off deformity and No Paracervical muscle tenderness Chest: COMMONS NORMALS: normal inspection of the chest OTHER: TTP R posterior ribs; no crepitus Resp: COMMON NORMALS: normal respiratory effort and clear to auscultation bilaterally AUSCULTATION: clear to auscultation bilaterally Cardio: COMMON NORMALS: regular rate and regular rhythm RATE: regular rate RHYTHM: regular rhythm GI: COMMON NORMALS: Normal to inspection, nondistended, normoactive bowel sounds present, Soft to palpation, No hepatosplenomegaly present and no masses INSPECTION: Yes normal to inspection AUSCULTATION: Yes normoactive bowel sounds PALPATION: Yes Soft to palpation, Yes Tenderness to palpation present (GI) (RUQ), No Guarding due to palpation present (GI), No Rigid due to palpation and Yes No hepatosplenomegaly present : COMMON NORMALS: Yes no CVA tenderness BLADDER/KIDNEY EXAM: Yes no CVA tenderness Back/Pelvis: COMMON NORMALS: no CVA tenderness, thoracic and lumbar spine normal to inspection, no thoracic nor lumbar tenderness, thoraco-lumbar ROM normal and straight leg raise negative bilaterally Extremity: COMMON NORMALS: normal to inspection and full ROM GENERAL: Yes normal exam except as noted Neuro: COMMON NORMALS: moves all extremities, no focal motor deficits and no sensory deficits noted SENSORIUM/ORIENTATION: Yes alert Skin: NARRATIVE SKIN EXAM: mild contusion R back Course 2 Vital Signs: Vital signs: Vital Signs Temperature 97.8 F 04/28/25 02:30 Pulse Rate 60 04/28/25 09:00 Respiratory Rate 2 L 04/28/25 09:56 Blood Pressure 167/89 04/28/25 09:00 Pulse Oximetry 93 04/28/25 09:00 Oxygen Delivery Me thod Nasal Cannula 04/28/25 07:15 Oxygen Flow Rate 4 04/28/25 07:15 MDM - Back Pain/Injury Labs 04/27/25 13:47 04/27/25 13:47 Radiology Impressions Chest/Abdomen/Pelvis CT 04/27/25 13:40 IMPRESSION: 1. Large right lower lobe alveolar pneumon 0 1 placenta new 2. Coronary artery calcifications IMPRESSION: 1. No acute findings. 2. Sigmoid colon diverticulosis 3. Lumbar spine osteoarthritis Chest X-Ray 04/28/25 08:00 IMPRESSION: 1. Persistent tiny right apical pneumothorax, with chest tube in satisfactory position. 2. Unchanged appearance of the lungs with loss of volume and streaky bibasilar atelectasis. Laboratory Results WBC 11.13 10^3/uL (3.29-11.43) 04/27/25 13:47 RBC 5.15 10^6/uL (3.85-5.65) 04/27/25 13:47 Hgb 14.70 g/dL (11.27-16.99) 04/27/25 13:47 Hct 45.6 % (37-53) 04/27/25 13:47 MCV 88.5 fl (82-101) 04/27/25 13:47 MCH 28.5 pg (27-33) 04/27/25 13:47 MCHC 32.2 g/dL (30-55) 04/27/25 13:47 RDW 14.5 % (12.1-15.1) 04/27/25 13:47 Plt Count 264 10^3/cmm (157-399) 04/27/25 13:47 MPV 9.3 fL (7.4-10.4) 04/27/25 13:47 Neut % (Auto) 73.9 % 04/27/25 13:47 Lymph % (Auto) 15.5 % 04/27/25 13:47 Culberson % (Auto) 8.1 % 04/27/25 13:47 Eos % (Auto) 1.8 % 04/27/25 13:47 Baso % (Auto) 0.4 % 04/27/25 13:47 Neut # (Auto) 8.22 10^3/uL (1.8-7.7) H 04/27/25 13:47 Lymph # (Auto) 1.7 10^3/uL (0.8-4.8) 04/27/25 13:47 Culberson # (Auto) 0.9 10^3/uL (0.2-0.9) 04/27/25 13:47 Eos # (Auto) 0.2 10^3/uL (0.0-0.8) 04/27/25 13:47 Baso # (Auto) 0.1 10^3/uL (0.0-0.1) 04/27/25 13:47 Nucleated RBC % (auto) 0 % 04/27/25 13:47 Nucleated RBCs # 0.0 /100WBC 04/27/25 13:47 Sodium 134 mmol/L (136-145) L 04/27/25 13:47 Potassium 4.7 mmol/L (3.5-5.1) 04/27/25 13:47 Chloride 98 mmol/L (98-107) 04/27/25 13:47 Carbon Dioxide 20 mmol/L (22-29) L 04/27/25 13:47 Anion Gap 20.7 (5-19) H 04/27/25 13:47 BUN 43 mg/dL (8-23) H 04/27/25 13:47 Creatinine 1.4 mg/dL (0.7-1.2) H 04/27/25 13:47 GFR Calculation Not Reportable 04/27/25 13:47 Glucose 115 mg/dL (65-115) 04/27/25 13:47 Calculated Osmolality 290 mOsm/kg (285-295) 04/27/25 13:47 Calcium 9.6 mg/dL (8.5-10.5) 04/27/25 13:47 Total Bilirubin 0.6 mg/dL (0.15-1.2) 04/27/25 13:47 AST 15 U/L (0-40) 04/27/25 13:47 ALT 18 U/L (0-41) 04/27/25 13:47 Alkaline Phosphatase 110 U/L (40-130) 04/27/25 13:47 Creatine Kinase 75 U/L (39-308) 04/27/25 13:47 Total Protein 8.3 g/dL (6.6-8.7) 04/27/25 13:47 Albumin 4.2 g/dL (3.5-5.2) 04/27/25 13:47 Globulin 4.1 g/dL (1.3-4.6) 04/27/25 13:47 Discharge Plan Discharge Patient Disposition: Admitted As Inpatient Admit Provider: Julito Nieto Clinical Impression: Pneumothorax, Fall from horse Condition: Stable Coding Level of Care Code ED Economic Research Assistant for Chg Fwd Documented by User: Anh Dasilva MD 04/27/25 17:26 HPI - Back Pain/Injury 2 General: Chief Complaint: ER Hold Stated Complaint: fall/right back/side pain Time Seen by Provider: 04/27/25 13:15 Related Data Home Medications ?Medication ?Instructions ?Recorded ?Confirmed cholecalciferol (vitamin D3) 1,250 1,250 mcg PO DAILY 05/17/20 04/28/25 mcg (50,000 unit) tablet sodium bicarbonate 650 mg tablet 1,300 mg PO BID renal tubular 09/19/23 04/28/25 acidosis Previous Rx's ?Medication ?Instructions ?Recorded blood sugar diagnostic (ReliOn #10 ea 10/03/19 Prime Test Strips) blood sugar diagnostic (OneTouch #100 ea 12/22/19 Verio test strips) blood sugar diagnostic (OneTouch #100 ea 03/16/20 Ultra Blue Test Strip) lisinopril 20 mg tablet 20 mg PO BID #180 tabs 11/12 amlodipine 10 mg tablet 10 mg PO DAILY #90 tabs 11/01 04/24 levetiracetam 500 mg tablet See Rx Instructions .Route 03/16/25 .COMPLEX #360 tabs sildenafil 50 mg tablet (Viagra) 50 - 100 mg (1 - 2 x 50 mg) PO 03/16/25 DAILY PRN sexual activity 30 days #10 tabs metoprolol succinate 25 mg 12.5 mg (1/2 x 25 mg) PO DA YAMIL #45 03/17/25 tablet,extended release 24 hr tabs finasteride 5 mg tablet See Rx Instructions .Route 0 04/17/25 .COMPLEX #90 tabs Allergies Allergy/AdvReac Type Severity Reaction Status Date / Time No Known Allergies Allergy Verified 04/27/25 12:41 PFSH ED 2 PFSH: Medical History Aortic stenosis Murmur, cardiac BPH (benign prostatic hyperplasia) Seizure disorder Diabetes mellitus type 2, controlled Tachycardia CAD (coronary artery disease) Essential hypertension Family History Other Diabetes Hypertension Stroke Social History (Updated 04/27/25 @ 19:16 by Julito Nieto MD) Smoking and tobacco/nicotine status: never used tobacco/nicotine Alcohol intake: current Alcohol intake frequency: holidays/special occasions only Substance/Drug Use: never Additional social history: 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 He is companied by his Mago and he wants full code as discussed with myself and Mago on 04/27/2025 by Julito Nieto MD Adopted: No Caregiver/support person: No Lives independently: Yes Marital status: Single Current occupational status: retired Do you think of yourself as: Straight/Heterosexual Current gender identity: Male Agree to transfusion: Yes Procedures Chest Tube Chest Tube 1: Chest Tube Location: right Size of Tube (cm): 14 Chest Tube Prep: Yes betadine prep Local Anesthetic: lidocaine 1% Amount of anesthesia used (mL): 10 Incision Made With: #11 blade Post Procedure: sutured to skin and sterile dressing applied Tube Drainage: none Post Procedure CXR?: Yes Patient Tolerated Procedure: Yes Course 2 Vital Signs: Vital signs: Vital Signs Temperature 97.8 F 04/28/25 02:30 Pulse Rate 60 04/28/25 09:00 Respiratory Rate 2 L 04/28/25 09:56 Blood Pressure 167/89 04/28/25 09:00 Pulse Oximetry 93 04/28/25 09:00 Oxygen Delivery Me thod Nasal Cannula 04/28/25 07:15 Oxygen Flow Rate 4 04/28/25 07:15 MDM - Back Pain/Injury Medical Decision Making Patient presents here after falling off a horse he does have a pneumothorax no other injuries noted did place a pigtail catheter spoke to county auditor along with hospitalist here and will admit at this time. His lungs reexpanded Medical Records I reviewed the patient's medical records. Labs I reviewed the patient's lab results. 04/27/25 13:47 04/27/25 13:47 Radiology Impressions Chest/Abdomen/Pelvis CT 04/27/25 13:40 IMPRESSION: 1. Large right lower lobe alveolar pneumon 0 1 placenta new 2. Coronary artery calcifications IMPRESSION: 1. No acute findings. 2. Sigmoid colon diverticulosis 3. Lumbar spine osteoarthritis Chest X-Ray 04/28/25 08:00 IMPRESSION: 1. Persistent tiny right apical pneumothorax, with chest tube in satisfactory position. 2. Unchanged appearance of the lungs with loss of volume and streaky bibasilar atelectasis. Laboratory Results WBC 11.13 10^3/uL (3.29-11.43) 04/27/25 13:47 RBC 5.15 10^6/uL (3.85-5.65) 04/27/25 13:47 Hgb 14.70 g/dL (11.27-16.99) 04/27/25 13:47 Hct 45.6 % (37-53) 04/27/25 13:47 MCV 88.5 fl (82-101) 04/27/25 13:47 MCH 28.5 pg (27-33) 04/27/25 13:47 MCHC 32.2 g/dL (30-55) 04/27/25 13:47 RDW 14.5 % (12.1-15.1) 04/27/25 13:47 Plt Count 264 10^3/cmm (157-399) 04/27/25 13:47 MPV 9.3 fL (7.4-10.4) 04/27/25 13:47 Neut % (Auto) 73.9 % 04/27/25 13:47 Lymph % (Auto) 15.5 % 04/27/25 13:47 Culberson % (Auto) 8.1 % 04/27/25 13:47 Eos % (Auto) 1.8 % 04/27/25 13:47 Baso % (Auto) 0.4 % 04/27/25 13:47 Neut # (Auto) 8.22 10^3/uL (1.8-7.7) H 04/27/25 13:47 Lymph # (Auto) 1.7 10^3/uL (0.8-4.8) 04/27/25 13:47 Culberson # (Auto) 0.9 10^3/uL (0.2-0.9) 04/27/25 13:47 Eos # (Auto) 0.2 10^3/uL (0.0-0.8) 04/27/25 13:47 Baso # (Auto) 0.1 10^3/uL (0.0-0.1) 04/27/25 13:47 Nucleated RBC % (auto) 0 % 04/27/25 13:47 Nucleated RBCs # 0.0 /100WBC 04/27/25 13:47 Sodium 134 mmol/L (136-145) L 04/27/25 13:47 Potassium 4.7 mmol/L (3.5-5.1) 04/27/25 13:47 Chloride 98 mmol/L (98-107) 04/27/25 13:47 Carbon Dioxide 20 mmol/L (22-29) L 04/27/25 13:47 Anion Gap 20.7 (5-19) H 04/27/25 13:47 BUN 43 mg/dL (8-23) H 04/27/25 13:47 Creatinine 1.4 mg/dL (0.7-1.2) H 04/27/25 13:47 GFR Calculation Not Reportable 04/27/25 13:47 Glucose 115 mg/dL (65-115) 04/27/25 13:47 Calculated Osmolality 290 mOsm/kg (285-295) 04/27/25 13:47 Calcium 9.6 mg/dL (8.5-10.5) 04/27/25 13:47 Total Bilirubin 0.6 mg/dL (0.15-1.2) 04/27/25 13:47 AST 15 U/L (0-40) 04/27/25 13:47 ALT 18 U/L (0-41) 04/27/25 13:47 Alkaline Phosphatase 110 U/L (40-130) 04/27/25 13:47 Creatine Kinase 75 U/L (39-308) 04/27/25 13:47 Total Protein 8.3 g/dL (6.6-8.7) 04/27/25 13:47 Albumin 4.2 g/dL (3.5-5.2) 04/27/25 13:47 Globulin 4.1 g/dL (1.3-4.6) 04/27/25 13:47 All radiology interpretation(s) finalized by discharge Discharge Plan Discharge Patient Disposition: Admitted As Inpatient Admit Provider: Julito Nieto Clinical Impression: Pneumothorax, Fall from horse Condition: Stable Coding Level of Care Code ED Economic Research Assistant for Aixa Biswas
[2025-04-27 13:53] LABS: Hematocrit 45.6 % (37-53); Hemoglobin 14.70 g/dL (11.27-16.99); Mean Corpuscular HGB Conc 32.2 g/dL (30-55); Mean Corpuscular Hemoglobin 28.5 pg (27-33); Mean Corpuscular Volume 88.5 fl (82-101); Nucleated Red Blood Cells % 0 %; Platelet Count 264 10^3/cmm (157-399); Red Blood Count 5.15 10^6/uL (3.85-5.65); White Blood Count 11.13 10^3/uL (3.29-11.43)
[2025-04-27 14:12] LABS: Alanine Aminotransferase 18 U/L (0-41); Albumin Level 4.2 g/dL (3.5-5.2); Alkaline Phosphatase 110 U/L (40-130); Anion Gap 20.7 (5-19); Aspartate Amino Transferase 15 U/L (0-40); Blood Urea Nitrogen 43 mg/dL (8-23); Calcium 9.6 mg/dL (8.5-10.5); Carbon Dioxide 20 mmol/L (22-29); Chloride 98 mmol/L (98-107); Creatinine Clr Calc Pharmacy 52.7758; Globulin 4.1 g/dL (1.3-4.6); Glucose 115 mg/dL (65-115); Osmolality Calculated 290 mOsm/kg (285-295); Potassium 4.7 mmol/L (3.5-5.1); Sodium 134 mmol/L (136-145); Total Protein 8.3 g/dL (6.6-8.7)
[2025-04-27] MEDS: LORazepam 1 MG/0.5 ML injection IVP (14:47)
[2025-04-27] MEDS: morphine 4 mg/mL SDV 1 mL IVP (14:47)
[2025-04-27] MEDS: ondansetron 2 mg/ML SDV 2 mL 4 MG IVP (14:47)
--- NOTE | 2025-04-27 15:00 | XRR_ITS ---
PROCEDURE INFORMATION: Exam: XR Chest Exam date and time: 04/27/2025 3:00 PM Age: 74 years old Clinical indication: Device placement; Chest tube; Additional info: Post chest tube TECHNIQUE: Imaging protocol: Radiologic exam of the chest. Views: 1 view. COMPARISON: CR XR chest 1V portable [id number] 04/27/2025 2:03 PM FINDINGS: Tubes, catheters and devices: There is a pigtail catheter chest tube in right lower lung. Lungs: Low lung volumes are seen. The lungs are otherwise clear. No consolidation. Pleural spaces: Unremarkable. No pleural effusion. The right lung pneumothorax seen on prior examination has now re-expanded.. Heart/Mediastinum: Unremarkable. No cardiomegaly. Bones/joints: Unremarkable. XR/XR chest 1V portable [id number] IMPRESSION: 1. Right lung pneumothorax is now re-expanded 2. No acute findings. 3. Low lung volumes. 4. Pigtail catheter chest tube right lower lung
[2025-04-27] MEDS: HYDROmorphone 0.5 MG/0.5 ML INJ 1 MG IVP ×3 (15:27→23:44)
[2025-04-27] MEDS: iohexol 350 mg/mL 500 mL Btl (per mL) IV (15:35)
[2025-04-27] MEDS: cefTRIAXone 1,000 mg SDV 1000 MG IVP (18:52)
--- NOTE | 2025-04-27 19:11 | PM.HP ---
Providers/Chief Complaint Admitting Physician: Julito Nieto MD Primary Care Provider: JONNY Gillette Chief Complaint: fall/right back/side pain History of Present Illness Mir Quinones is a 74 year old male with history of being thrown off a horse on Sunday a.m. states that he initially was breathing okay but walking 50 yards he started to be short of breath. Coughing hurts and then he had back pain came in with pleurisy and found to have right pneumothorax. Dr. Dasilva placed a pigtail catheter and consulted Dr. Luo and also requested that I admit the patient. Patient is here with his Mago. He states that he has diabetes hypertension and a remote history of seizure 30 years ago. 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 He remembers his vision going blurry that he had a seizure wetting his pants and soiling his pants. He was placed on levetiracetam at 1000 mg twice a day and has been taking it ever since. Patient does report a history of an anion gap acidosis he has been treated with sodium bicarbonate 1300 mg twice daily for renal tubular acidosis Dr. Luo called and states he put the chest tube to waterseal will have a follow-up film it 1999 and if no recurrence of the pneumothorax [facility] in [facility] Review of Systems Narrative: General No fevers chills weight gain weight loss Cardiovascular positive for chest pain with pleurisy no palpitations or leg edema GI no nausea vomiting diarrhea constipation negative for dysuria hematuria he has nocturia 1 time a night Neuro no seizure in 30 years Malignancy history negative Hematologic negative for blood clots in legs or lungs Medications/Allergies Home Medications ?Medication ?Instructions ?Recorded ?Confirmed ?Last Taken ?Type blood sugar diagnostic (ReliOn #10 ea 10/03/19 04/27/25 Unknown Rx Prime Test Strips) blood sugar diagnostic (OneTouch #100 ea 12/22/19 04/27/25 Unknown Rx Verio test strips) blood sugar diagnostic (OneTouch #100 ea 03/16/20 04/27/25 Unknown Rx Ultra Blue Test Strip) cholecalciferol (vitamin D3) 1,250 1,250 mcg PO DAILY 05/17/20 04/27/2505/14/24 History mcg (50,000 unit) tablet sodium bicarbonate 650 mg tablet 1,300 mg PO BID renal tubular 09/19/23 04/27/25 05/14/24 History acidosis atorvastatin 80 mg tablet 80 mg PO DAILY #90 tabs 11/12/24 04/27/25 Unknown Rx lisinopril 20 mg tablet 20 mg PO BID #180 tabs 11/12/24 04/27/25 Unknown Rx amlodipine 10 mg tablet 10 mg PO DAILY #90 tabs 11/17/24 04/27/25 Unknown Rx levetiracetam 500 mg tablet See Rx Instructions .Route 03/16/25 04/27/25 Unknown Rx .COMPLEX #360 tabs sildenafil 50 mg tablet (Viagra) 50 - 100 mg (1 - 2 x 50 mg) PO 03/16/25 04/27/25 Unknown Rx DAILY PRN sexual activity 30 days #10 tabs metoprolol succinate 25 mg 12.5 mg (1/2 x 25 mg) PO DAILY #45 03/17/25 04/27/25 Unknown Rx tablet,extended release 24 hr tabs finasteride 5 mg tablet See Rx Instructions .Route 04/17/25 04/27/25 Unknown Rx .COMPLEX #90 tabs Allergies Allergy/AdvReac Type Severity Reaction Status Date / Time No Known Allergies Allergy Verified 04/27/25 12:41 PFSH Acute PFSH: Medical History (Updated 04/27/25 @ 19:19 by Julito Nieto MD) Aortic stenosis Murmur, cardiac BPH (benign prostatic hyperplasia) Seizure disorder Diabetes mellitus type 2, controlled Tachycardia CAD (coronary artery disease) Essential hypertension Family History Other Diabetes Hypertension Stroke Social History (Updated 04/27/25 @ 19:16 by Julito Nieto MD) Smoking and tobacco/nicotine status: never used tobacco/nicotine Alcohol intake: current Alcohol intake frequency: holidays/special occasions only Substance/Drug Use: never Additional social history: 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 He is companied by his Mago and he wants full code as discussed with myself and Mago on 04/27/2025 by Julito Nieto MD Adopted: No Caregiver/support person: No Lives independently: Yes Marital status: Single Current occupational status: retired Do you think of yourself as: Straight/Heterosexual Current gender identity: Male Agree to transfusion: Yes Vitals/I&O/Wt Last Vital Signs Temp 97.7 F 04/27/25 13:18 Pulse 66 04/27/25 18:16 Resp 16 04/27/25 13:18 BP 127/68 04/27/25 18:16 Pulse Ox 90 04/27/25 18:16 O2 Del Method Nasal Cannula 04/27/25 14:38 O2 Flow Rate 2 04/27/25 14:38 04/27/25 04/27/25 04/27/25 06:59 14:59 22:59 Intake Total 1000 / 1000 Balance 1000 / 1000 Weight last 48 hrs Weight 82.1 kg Physical Exam Narrative: General well-developed well-nourished male in no acute cardiopulmonary distress. Patient is supine with chest tube from the right chest. He is able to take deep breaths Cardiovascular regular rate and rhythm Lungs clear to auscultation bilaterally with decreased breath sounds in the right lower lung field Abdomen positive bowel tones soft nontender Calves no tenderness cords pretibial edema Radial pulses 2+ bilateral Neuro patient is mildly sedated Mood and affect normal Data 04/27/25 13:47 04/27/25 13:47 Micro: Microbiology 04/27/25 18:11 Blood Culture - Preliminary Blood SPECIMEN COLLECTED 04/27/25 17:45 Blood Culture - Preliminary Blood SPECIMEN COLLECTED A&P Assessment and plan 1. Pneumothorax, closed, traumatic: Patient has a chest tube managed by Dr. Luo. Plan for waterseal until 8 PM with x-ray at that time and if no recurrence then waterseal to the morning with repeat x-ray and clamped if still stable. 2. Contusion of lung, closed: Patient is not coughing up blood saturations are fine 3. Diabetes mellitus: Start sliding scale insulin low scale and 1600-calorie ADA diet 4. Renal tubular acidosis: I see he has had RTA since 2019. He has been on levetiracetam since 30 years. This is not a common side effect but he is was on a fairly large dose and levetiracetam can occasionally cause RTA. Will decrease levetiracetam to 500 mg twice a day. I have discussed with the patient the idea of weaning levetiracetam. He disclosed that he is already taking just 1000 mg in the morning and 500 mg in the evening weaning already no seizure activity 5. Essential hypertension: Continue home blood pressure medications. Hold if hypotensive 6. Seizure disorder: No seizure in 30 years and he reports that his seizure occurred when he was having trouble with hypoglycemia and also lack of sleep PDMP PDMP Reviewed: Not Reviewed Attestations Medical Necessity Statement*: Patient will be observed in the hospital overnight anticipate potential discharge in 1 to 2 days Coding Level of Care Code 05671 Diagnoses Pneumothorax, closed, traumatic S27.0XXA Contusion of lung, closed S27.329A Diabetes mellitus E11.9 Renal tubular acidosis N25.89 Essential hypertension I10 Seizure disorder G40.909 Time Spent (min) 70
--- NOTE | 2025-04-27 20:00 | XRR_ITS ---
PROCEDURE INFORMATION: Exam: XR Chest Exam date and time: 04/27/2025 7:50 PM Age: 74 years old Clinical indication: Other: F/u chest tube TECHNIQUE: Imaging protocol: Radiologic exam of the chest. Views: 1 view. COMPARISON: CT chest abdpel [id number] 04/27/2025 3:32 PM FINDINGS: Tubes, catheters and devices: Right basilar chest tube. Lungs: Low lung volumes. Consolidative opacities in the right lung base. Pleural spaces: No visible pneumothorax. Heart/Mediastinum: Unremarkable. No cardiomegaly. Bones/joints: Unremarkable. XR/XR chest 1V portable [id number] IMPRESSION: Redemonstrated consolidative opacities in the right lung base.
[2025-04-27] MEDS: morphine 4 mg/mL SDV 1 mL 2 MG IVP (21:00)
--- NOTE | 2025-04-27 21:57 | PM.CONSULT ---
Providers/Reason For Consult Consulting Physician/Specialty*: ED/Internal medicine Reason for Consult*: Pneumothorax Attending Physician: Julito Nieto MD Primary Care Provider: JONNY Gillette History of Present Illness History of Present Illness Mir Quinones is a 74-year-old male with a complex medical history who presented to the Emergency Department with complaints of right-sided chest pain and shortness of breath. His symptoms began Sunday morning following a fall from a horse, during which he landed on his back. Initially, he remained at home, attributing his discomfort to musculoskeletal pain. However, over the following days, his pain and dyspnea worsened, prompting him to seek medical attention. Imaging in the ED revealed a large right-sided pneumothorax. A 14 Fr right pigtail catheter was placed by the ED physician, resulting in complete resolution of the pneumothorax. Upon my examination, there was no clinical or radiographic evidence of an ongoing air leak. The patient continued to report right-sided chest pain. A CT scan of the chest demonstrated right lower lobe consolidation, for which empiric antibiotics were initiated. Relevant Past Medical History per chart review: Aortic stenosis Cardiac murmur Coronary artery disease Essential hypertension Type 2 diabetes mellitus (well-controlled) Benign prostatic hyperplasia (BPH) Seizure disorder Review of Systems General: Reports: 10 or more systems reviewed and unremarkable except in HPI and below Resp: Reports: dyspnea and pain on inspiration Medications/Allergies Home Medications ?Medication ?Instructions ?Recorded ?Confirmed ?Last Taken ?Type blood sugar diagnostic (ReliOn #10 ea 10/03/19 04/27/25 Unknown Rx Prime Test Strips) blood sugar diagnostic (OneTouch #100 ea 12/22/19 04/27/25 Unknown Rx Verio test strips) blood sugar diagnostic (OneTouch #100 ea 03/16/20 04/27/25 Unknown Rx Ultra Blue Test Strip) cholecalciferol (vitamin D3) 1,250 1,250 mcg PO DAILY 05/17/20 04/27/25 05/14/24 History mcg (50,000 unit) tablet sodium bicarbonate 650 mg tablet 1,300 mg PO BID renal tubular 09/19/23 04/27/25 05/14/24 History acidosis atorvastatin 80 mg tablet 80 mg PO DAILY #90 tabs 11/12/24 04/27/25 Unknown Rx lisinopril 20 mg tablet 20 mg PO BID #180 tabs 11/12/24 04/27/25 Unknown Rx amlodipine 10 mg tablet 10 mg PO DAILY #90 tabs 11/17/24 04/27/25 Unknown Rx levetiracetam 500 mg tablet See Rx Instructions .Route 03/16/25 04/27/25 Unknown Rx .COMPLEX #360 tabs sildenafil 50 mg tablet (Viagra) 50 - 100 mg (1 - 2 x 50 mg) PO 03/16/25 04/27/25 Unknown Rx DAILY PRN sexual activity 30 days #10 tabs metoprolol succinate 25 mg 12.5 mg (1/2 x 25 mg) PO DAILY #45 03/17/25 04/27/25 Unknown Rx tablet,extended release 24 hr tabs finasteride 5 mg tablet See Rx Instructions .Route 04/17/25 04/27/25 Unknown Rx .COMPLEX #90 tabs Allergies Allergy/AdvReac Type Severity Reaction Status Date / Time No Known Allergies Allergy Verified 04/27/25 12:41 Current Medications Generic Name Dose Route Start Last Admin Trade Name Freq PRN Reason Stop Dose Admin Sodium Chloride 1,000 mls @ 125 mls/hr 04/27/25 19:00 04/27/25 20:50 Sodium Chloride 0.9% IV 125 mls/hr .Q8H KRAIG Administration Lisinopril 20 mg 04/27/25 20:00 04/27/25 20:50 Lisinopril 20 Mg Tablet PO 20 mg BID KRAIG Administration Morphine Sulfate 2 mg 04/27/25 19:10 04/27/25 21:00 Morphine 4 Mg/Ml Sdv 1 Ml IVP 2 mg Q4H PRN Administration SEVERE PAIN PFSH Acute PFSH: Medical History (Updated 04/27/25 @ 22:19 by Maikel Luo MD) Aortic stenosis Murmur, cardiac BPH (benign prostatic hyperplasia) Seizure disorder Diabetes mellitus type 2, controlled Tachycardia CAD (coronary artery disease) Essential hypertension Family History Other Diabetes Hypertension Stroke Social History (Updated 04/27/25 @ 19:16 by Julito Nieto MD) Smoking and tobacco/nicotine status: never used tobacco/nicotine Alcohol intake: current Alcohol intake frequency: holidays/special occasions only Substance/Drug Use: never Additional social history: 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 He is companied by his Mago and he wants full code as discussed with myself and Mago on 04/27/2025 by Julito Nieto MD Adopted: No Caregiver/support person: No Lives independently: Yes Marital status: Single Current occupational status: retired Do you think of yourself as: Straight/Heterosexual Current gender identity: Male Agree to transfusion: Yes Vitals/I&O/Wt Last Vital Signs Temp 97.7 F 04/27/25 13:18 Pulse 57 L 04/27/25 20:00 Resp 16 04/27/25 21:00 BP 118/50 04/27/25 20:00 Pulse Ox 91 04/27/25 21:00 O2 Del Method Nasal Cannula 04/27/25 19:00 O2 Flow Rate 4 04/27/25 19:00 04/27/25 04/27/25 04/27/25 06:59 14:59 22:59 Intake Total 1000 / 1000 Balance 1000 / 1000 Weight last 48 hrs Weight 181 lb Physical Exam Narrative: General: Alert, oriented, and in no acute distress. Appears well-nourished and well-developed. Head: Normocephalic and atraumatic. Eyes: Pupils equal, round, and reactive to light. Extraocular movements intact. No scleral icterus or conjunctival injection. Ears/Nose/Throat: Nasal mucosa is moist without discharge. Oropharynx is clear without erythema or exudate. Dentition intact. No lesions or thrush. Neck: Supple. No lymphadenopathy Cardiovascular: Regular rate and rhythm. Normal S1 and S2. No murmurs, gallops, or rubs. No peripheral edema. Respiratory: Lungs are clear to auscultation bilaterally. No wheezes, rales, or rhonchi. No use of accessory muscles. Right chest tube in place with no evidence of airleak Abdomen: Soft, non-tender, non-distended. Normoactive bowel sounds. Extremities: No cyanosis, clubbing, or edema. Full range of motion. Peripheral pulses palpable and symmetric. Skin: Warm and dry. No rashes, lesions, or ulcers. Neurology: Alert and oriented to person, place, and time. Grossly intact with no focal deficit. Psychiatry: Good mood with Appropriate affect. Data 04/27/25 13:47 07/28/25 13:47 Micro: Microbiology 04/27/25 18:11 Blood Culture - Preliminary Blood SPECIMEN COLLECTED 04/27/25 17:45 Blood Culture - Preliminary Blood SPECIMEN COLLECTED A&P Assessment and plan 1. Contusion of lung, closed: 2. Traumatic pneumohemothorax: 3. Essential hypertension: 4. Diabetes mellitus: 5. BPH (benign prostatic hyperplasia): 6. Seizure disorder: Plan: Mir Quinones, a 74-year-old male, presented with right chest pain and dyspnea following a fall from a horse. He was found to have a right pneumothorax treated with a pigtail catheter and CT chest revealed RLL consolidation, for which antibiotics were started. Recommendations: Continue chest tube to water seal, as repeat chest X-ray shows no evidence of pneumothorax recurrence while on water seal. Maintain aggressive pain control, given the presence of atelectasis likely contributing to acute pneumonia. Encourage frequent use of incentive spirometry to promote lung expansion. Antibiotic management to continue under the direction of the hospital medicine team. If the morning chest X-ray remains stable, plan to clamp the chest tube and obtain a follow-up X-ray four hours later. We will continue to monitor the patient closely. Maikel Luo MD, FACP, FABRICE Interventional Pulmonary PDMP PDMP Reviewed: Not Reviewed Coding Level of Care Code Acute Code for Chg Fwd Diagnoses Contusion of lung, closed S27.329A Traumatic pneumohemothorax S27.2XXA Essential hypertension I10 Diabetes mellitus E11.9 BPH (benign prostatic hyperplasia) N40.0 Seizure disorder G40.909
[2025-04-28] VITALS (20 sets, daily range): BP systolic 116–171; BP diastolic 62–89; PULSE 52–74; RESP 2–23; TEMP 36.4–36.6; O2SAT 86–97; BMI 25.7
--- NOTE | 2025-04-28 01:41 | PC.NURSE ---
Upon transferring to CSU the patient had 45ml of sanguineous drainage in the collection chamber at 0135.
[2025-04-28] MEDS: morphine 4 mg/mL SDV 1 mL 2 MG IVP ×3 (02:06→15:39)
--- NOTE | 2025-04-28 08:00 | XRR_ITS ---
PROCEDURE INFORMATION: Exam: XR Chest Exam date and time: 04/28/2025 7:22 AM Age: 74 years old Clinical indication: Device placement; Other: Waterseal; Additional info: Follow up waterseal TECHNIQUE: Imaging protocol: Radiologic exam of the chest. Views: 1 view. COMPARISON: CR (CHEST, ) 04/27/2025 7:50 PM FINDINGS: Tubes, catheters and devices: Unchanged position of right-sided chest tube. Lungs: Low lung volumes. Pleural spaces: Persistent tiny right apical pneumothorax. Possible trace right-sided pleural fluid. Streaky bibasilar atelectasis seen. Heart/Mediastinum: Stable cardiomediastinal silhouette. Bones/joints: Degenerative changes of the spine seen. XR/XR chest 1V portable [id number] IMPRESSION: 1. Persistent tiny right apical pneumothorax, with chest tube in satisfactory position. 2. Unchanged appearance of the lungs with loss of volume and streaky bibasilar atelectasis.
[2025-04-28] MEDS: metoprolol succinate ER (24 HR) 25 mg Tablet 12.5 MG PO (08:14)
--- NOTE | 2025-04-28 09:15 | PC.CHAP ---
Pastoral Care Encounter/Spiritual Assessment Type of Contact [] Declined machine grinder visit [] Patient/Family/Request visit [] Outpatient visit [] Follow-up visit [] Physician referral [] Code/Alert [] Routine visit [] Staff referral [] Actively dying [] Patient sleeping [] Family support [] [x] Out of room [] Palliative care [] [] Receiving care in room [] Pre-surgical visit [] Trauma [] Long length of stay [] ICU visit [] Other: Relational/Emotional Strength [] Patient feels connected with others/family/visitors/staff [] Distress [] Loneliness/isolation [] Abandonment Spirituality of Patient [] Person of Carmelita [] Attends Mandaeism of their Carmelita [] Believes in Prayer [] Reads Bible or Mormon materials [] There are Spiritual issues to be addressed Human Resources Coordinator Interventions [] Prayer [] Active listening [] Non-anxious presence [] Spiritual/emotional support [] Crisis/trauma care [] Spiritual counseling [] Bereavement support [] Provided bereavement packet [] Provided Bible/devotional materials [] Provided toy/stuffed animal, coloring book to patient or family member [] Provided Communion [] Anointing/[place] [] Salvation [] Completed spiritual assessment [] Other: Impact on Illness or Injury [] Angry [] Fearful [] Anxious [] Often cries [] Exhaustion [] Unable to work [] Unable to attend jewish [] Unable to walk/stand [] Unable to read [] Unable to drive [] Unable to eat/drink [] Unable to sleep [] Unable to be with family [] Patient intubated [] Other: Summary Time spent with patient
[2025-04-28] MEDS: oxyCODONE-APAP 5-325 mg Tablet 1 TAB PO ×2 (09:56→17:35)
--- NOTE | 2025-04-28 10:57 | P.PN_ITS ---
Documented by User: JONNY Callahan 04/29/25 08:22 Subjective 2 Subjective: No acute events overnight. Patient has been doing well on waterseal. Patient reports the pain that brought him in to the emergency room in his right side has subsided, though he reports pain in his right lung which he attributes to a chest tube. He reports it is especially painful when moving and coughing. No other complaints. Vitals/I&O/Wt Last Vital Signs Temp 97.8 F 04/28/25 02:30 Pulse 60 04/28/25 09:00 Resp 2 L 04/28/25 09:56 BP 167/89 04/28/25 09:00 Pulse Ox 93 04/28/25 09:00 O2 Del Method Nasal Cannula 04/28/25 07:15 O2 Flow Rate 4 04/28/25 07:15 04/27/25 04/28/25 04/28/25 22:59 06:59 14:59 Intake Total 1000 / 1000 1730 / 2730 360 / 360 Output Total 2500 / 2500 700 / 700 Balance 1000 / 1000 -770 / 230 -340 / -340 Weight last 48 hrs Weight 86.319 kg Weight 86.273 kg Weight 86.273 kg Weight 82.1 kg Physical Exam 2 Narrative: General: Alert, oriented, and in no acute distress. Appears well-nourished and well-developed. Sitting up in bed comfortably. Head: Normocephalic and atraumatic. Eyes: Pupils equal, round, and reactive to light. Extraocular movements intact. No scleral icterus or conjunctival injection. Ears/Nose/Throat: Nasal mucosa is moist without discharge. Oropharynx is clear without erythema or exudate. Dentition intact. No lesions or thrush. Neck: Supple. No lymphadenopathy Cardiovascular: Regular rate and rhythm. Normal S1 and S2. No murmurs, gallops, or rubs. No peripheral edema. Respiratory: Lungs are clear to auscultation bilaterally. No wheezes, rales, or rhonchi. No use of accessory muscles. Right chest tube in place. No evidence of airleak. Abdomen: Soft, non-tender, non-distended. Normoactive bowel sounds. Extremities: No cyanosis, clubbing, or edema. Full range of motion. Peripheral pulses palpable and symmetric. Skin: Warm and dry. No rashes, lesions, or ulcers. Neurology: Alert and oriented to person, place, and time. Grossly intact with no focal deficit. Psychiatry: Good mood with Appropriate affect. Data 04/29/25 05:59 04/29/25 05:59 Micro: Microbiology 04/27/25 18:11 Blood Culture - Preliminary Blood SPECIMEN COLLECTED 04/27/25 17:45 Blood Culture - Preliminary Blood SPECIMEN COLLECTED A&P Assessment and plan 1. Traumatic pneumohemothorax: Patient tolerated the chest tube on water seal well overnight. Tidaling well with no evidence of air leak. Clamped chest tube at 8:40 AM. Repeat x-ray performed at 11:05 AM. This x-ray appeared stable. Right chest tube was removed at 1145. Patient tolerated well. Covered with sterile gauze and 2 sterile Tegaderm. 2. Pneumonia: On antibiotics per hospitalist team. 3. Contusion of lung, closed: Plan: Overall, the patient has clinically improved. He reports he wants to go home today. Chest tube was removed without incident. He has been tolerating well. Will repeat chest x-ray at 4:00 pm. If patient remains stable without any signs or symptoms of recurrent pneumothorax, he may discharge home today. Patient was educated to keep the dressing on for the next 2 days. At this time, he may change the dressing. This should be kept covered with 4 x 4 gauze and Tegaderm until healed. No flying for 6 weeks. No heaving lifting or strenuous exercise for 2 weeks. He should follow-up with his primary care within the next week. He will need a follow-up chest x-ray in 4 weeks or if he displays any signs or symptoms. If any abnormalities he should follow up in pulmonolgy clinic. Encourage frequent use of incentive spirometry to promote lung expansion. Recommend good pain control on discharge to prevent further atelectesis and pneumonia. Relayed to him that he should have a low threshold to return to the emergency department for any concerns or complications such as sharp chest pain or increasing shortness of breath. PDMP PDMP Reviewed: Not Reviewed Attestations 2 Medical Necessity Statement*: patient hospitalized for traumatic pneumothorax Procedures Procedure Narrative Anchoring suture removed utilizing forceps and scissors in entirety. Pigtail catheter was then removed. Small amount of serosanguineous fluid noted from chest tube site post removal. No bleeding was encountered. Covered the site with sterile gauze and 2 Tegaderms. Coding Level of Care Code Acute Code for Chg Fwd Diagnoses Traumatic pneumohemothorax S27.2XXA Pneumonia J18.9 Contusion of lung, closed S27.329A Documented by User: Maikel Luo MD 05/04/25 15:01 Data 04/29/25 05:59 04/29/25 05:59 A&P Assessment and plan 1. Traumatic pneumohemothorax: Patient tolerated the chest tube on water seal well overnight. Tidaling well with no evidence of air leak. Clamped chest tube for about 4 hours Repeat x-ray with no air accumulation. Right chest tube was removed. Patient tolerated well. Covered with sterile gauze and 2 sterile Tegaderm. 2. Pneumonia: 3. Contusion of lung, closed: PDMP PDMP Reviewed: Not Reviewed Coding Level of Care Code Acute Code for Chg Fwd Diagnoses Traumatic pneumohemothorax S27.2XXA Pneumonia J18.9 Contusion of lung, closed S27.329A
--- NOTE | 2025-04-28 11:05 | XRR_ITS ---
PROCEDURE INFORMATION: Exam: XR Chest Exam date and time: 04/28/2025 10:53 AM Age: 74 years old Clinical indication: Device placement; Chest tube; Additional info: Follow up clamped chest tube TECHNIQUE: Imaging protocol: Radiologic exam of the chest. Views: 1 view. COMPARISON: CR XR chest 1V portable [id number] 04/28/2025 7:22 AM FINDINGS: Tubes, catheters and devices: EKG leads. Stable right-sided pigtail chest tube. Persistent minimal right apical pneumothorax. Lungs: Platelike atelectasis in the right lung base is apparent. There is minimal atelectasis in the left base. No pulmonary mass lesion, vascular congestion or interstitial lung disease is evident. There is improved aeration in the retrocardiac left lower lobe. Pleural spaces: See Tubes, catheters and devices finding. Heart/Mediastinum: Unremarkable. No cardiomegaly. Bones/joints: Unremarkable. XR/XR chest 1V portable [id number] IMPRESSION: 1. Stable right-sided chest tube. 2. Stable minimal right apical pneumothorax. 3. Lwtmn-bainvmk-yanr-left lung base atelectasis. 4. Improved aeration medial left lower lobe.
--- NOTE | 2025-04-28 11:50 | PC.NURSE ---
patient's chest tube pulled by Dr Garcia at 1150
--- NOTE | 2025-04-28 16:00 | XRR_ITS ---
PROCEDURE INFORMATION: Exam: XR Chest Exam date and time: 04/28/2025 3:57 PM Age: 74 years old Clinical indication: Device placement; Chest tube; Additional info: Chest tube pulled, at 1600 please TECHNIQUE: Imaging protocol: Radiologic exam of the chest. Views: 1 view. COMPARISON: CR XR chest 1V portable [id number] 04/28/2025 10:53 AM FINDINGS: Tubes, catheters and devices: EKG leads. The patient's chest tube has been discontinued. No recurrent pneumothorax is present. Minimal apical pleural air seen on prior study is no longer visible. Lungs: Lungs are fully inflated. Platelike atelectasis is again seen in the right lung base mild elevation of the right hemidiaphragm, unchanged from prior study. Pleural spaces: See Tubes, catheters and devices finding. Heart/Mediastinum: Retrocardiac streaky opacities persist and appear unchanged. Bones/joints: A 6th rib fracture is seen and mild displacement, unchanged from the prior study. XR/XR chest 1V portable [id number] IMPRESSION: 1. Status post chest tube discontinuation. No residual pneumothorax. 2. Stable atelectasis or scarring, right lung base. 3. Stable streaky opacities in the retrocardiac left lung base suspicious early pneumonia.
--- NOTE | 2025-04-28 17:46 | PM.DCS ---
Discharge Providers Date of Admission: 04/27/25 17:22 Date of Discharge: April 28, 2025 Attending Provider at Admission: Julito Nieto MD Attending Provider at Discharge: Julito Nieto MD Primary Care Provider: JONNY Gillette Diagnoses at Discharge Discharge Diagnosis 1. Traumatic pneumohemothorax: Details from hospital stay: Resolved with chest tube overnight 2. Pneumonia: Details from hospital stay: Continue with Augmentin 875 twice daily for 5 days 3. Contusion of lung, closed: Details from hospital stay: Antibiotics pain control incentive spirometry 4. Acute kidney injury: Details from hospital stay: Drink plenty of water do not start NSAIDs until tomorrow Reason for Visit Reason for Visit: fall/right back/side pain Brief History: Mir Quinones is a 74 year old male with history of being thrown off a horse on Sunday a.m. states that he initially was breathing okay but walking 50 yards he started to be short of breath. Coughing hurts and then he had back pain came in with pleurisy and found to have right pneumothorax. Dr. Dasilva placed a pigtail catheter and consulted Dr. Luo and also requested that I admit the patient. Patient is here with his Mago. He states that he has diabetes hypertension and a remote history of seizure 30 years ago. 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 He remembers his vision going blurry that he had a seizure wetting his pants and soiling his pants. He was placed on levetiracetam at 1000 mg twice a day and has been taking it ever since. Patient does report a history of an anion gap acidosis he has been treated with sodium bicarbonate 1300 mg twice daily for renal tubular acidosis Dr. Luo called and states he put the chest tube to waterseal will have a follow-up film it 1999 and if no recurrence of the pneumothorax we will leave this at waterseal until in the morning Hospital Course Hospital Course Patient had a chest tube placed in the emergency department. It was not showing air leak so was placed to waterseal. Overnight waterseal showed only tiny apical pneumothorax. Chest tube was placed clamp and noon films show stability. Chest tube was removed and follow-up chest x-ray with chest tube removed shows no residual pneumothorax Patient has right lung contusion and significant pain. He has been treated with pain meds and incentive spirometry. Patient is certain that he wants to go home today so was discharged with Augmentin and pain meds Patient had elevated creatinine presumably from dehydration and is encouraged to drink plenty of fluid. CK was normal Physical Exam Narrative: General well-developed well-nourished male in no acute cardiopulmonary stress with movement is obviously painful on his right side. CV regular rate and rhythm Lungs clear but decreased breath sounds in the right lower lung field Discharge Data Studies Completed and Pending Completed Studies During Hospitalization Category Date Time Status CT chest abdomen pelvis [CT chest abdpel w/*[id number] Cat Scan 04/27/25 13:40 Completed ] Stat CXRP [XR chest 1V portable [id number]] Routine Exams 04/28/25 16:00 Completed CXRP [XR chest 1V portable [id number]] Stat Exams 04/27/25 15:00 Completed XR chest 1V portable [id number] Routine Exams 04/27/25 20:00 Completed XR chest 1V portable [id number] Routine Exams 04/28/25 08:00 Completed XR chest 1V portable [id number] Routine Exams 04/28/25 11:05 Completed XR chest 1V portable [id number] Urgent Exams 04/27/25 13:41 Completed Pending at discharge Category Date Time Status BMP [Basic Metabolic Panel] Routine Lab 04/29/25 06:00 Ordered Blood Culture Stat Lab 04/27/25 18:11 Results CBC Auto Diff [Complete Blood Count w/Auto] Routine Lab 04/29/25 04:00 Ordered Radiology Impressions Chest/Abdomen/Pelvis CT 04/27/25 13:40 IMPRESSION: 1. Large right lower lobe alveolar pneumon 0 1 placenta new 2. Coronary artery calcifications IMPRESSION: 1. No acute findings. 2. Sigmoid colon diverticulosis 3. Lumbar spine osteoarthritis Chest X-Ray 04/28/25 16:00 IMPRESSION: 1. Status post chest tube discontinuation. No residual pneumothorax. 2. Stable atelectasis or scarring, right lung base. 3. Stable streaky opacities in the retrocardiac left lung base suspicious early pneumonia. Laboratory Results WBC 11.13 10^3/uL (3.29-11.43) 04/27/25 13:47 RBC 5.15 10^6/uL (3.85-5.65) 04/27/25 13:47 Hgb 14.70 g/dL (11.27-16.99) 04/27/25 13:47 Hct 45.6 % (37-53) 04/27/25 13:47 MCV 88.5 fl (82-101) 04/27/25 13:47 MCH 28.5 pg (27-33) 04/27/25 13:47 MCHC 32.2 g/dL (30-55) 04/27/25 13:47 RDW 14.5 % (12.1-15.1) 04/27/25 13:47 Plt Count 264 10^3/cmm (157-399) 04/27/25 13:47 MPV 9.3 fL (7.4-10.4) 04/27/25 13:47 Neut % (Auto) 73.9 % 04/27/25 13:47 Lymph % (Auto) 15.5 % 04/27/25 13:47 Swain % (Auto) 8.1 % 04/27/25 13:47 Eos % (Auto) 1.8 % 04/27/25 13:47 Baso % (Auto) 0.4 % 04/27/25 13:47 Neut # (Auto) 8.22 10^3/uL (1.8-7.7) H 04/27/25 13:47 Lymph # (Auto) 1.7 10^3/uL (0.8-4.8) 04/27/25 13:47 Swain # (Auto) 0.9 10^3/uL (0.2-0.9) 04/27/25 13:47 Eos # (Auto) 0.2 10^3/uL (0.0-0.8) 04/27/25 13:47 Baso # (Auto) 0.1 10^3/uL (0.0-0.1) 04/27/25 13:47 Nucleated RBC % (auto) 0 % 04/27/25 13:47 Nucleated RBCs # 0.0 /100WBC 04/27/25 13:47 Sodium 134 mmol/L (136-145) L 04/27/25 13:47 Potassium 4.7 mmol/L (3.5-5.1) 04/27/25 13:47 Chloride 98 mmol/L (98-107) 04/27/25 13:47 Carbon Dioxide 20 mmol/L (22-29) L 04/27/25 13:47 Anion Gap 20.7 (5-19) H 04/27/25 13:47 BUN 43 mg/dL (8-23) H 04/27/25 13:47 Creatinine 1.4 mg/dL (0.7-1.2) H 04/27/25 13:47 GFR Calculation Not Reportable 04/27/25 13:47 Glucose 115 mg/dL (65-115) 04/27/25 13:47 POC Glucose 112 mg/dL (70-110) H 04/27/25 19:04 Calculated Osmolality 290 mOsm/kg (285-295) 04/27/25 13:47 Calcium 9.6 mg/dL (8.5-10.5) 04/27/25 13:47 Total Bilirubin 0.6 mg/dL (0.15-1.2) 04/27/25 13:47 AST 15 U/L (0-40) 04/27/25 13:47 ALT 18 U/L (0-41) 04/27/25 13:47 Alkaline Phosphatase 110 U/L (40-130) 04/27/25 13:47 Creatine Kinase 75 U/L (39-308) 04/27/25 13:47 Total Protein 8.3 g/dL (6.6-8.7) 04/27/25 13:47 Albumin 4.2 g/dL (3.5-5.2) 04/27/25 13:47 Globulin 4.1 g/dL (1.3-4.6) 04/27/25 13:47 Vitals Last Vital Signs Temp 97.6 F 04/28/25 12:00 Pulse 72 04/28/25 12:00 Resp 20 H 04/28/25 17:35 BP 135/62 04/28/25 12:00 Pulse Ox 95 04/28/25 17:35 O2 Del Method Nasal Cannula 04/28/25 07:15 O2 Flow Rate 4 04/28/25 07:15 Discharge Plan Discharge Patient Disposition: Home Condition: Stable Prescriptions: New oxycodone-acetaminophen 5-325 mg Tablet 1 tab PO Q4H PRN (Reason: Moderate Pain) Qty: 30 0RF amoxicillin-pot clavulanate 875-125 mg tablet 1 tab PO BID Qty: 10 0RF levetiracetam 500 mg Tablet 500 mg PO BID Qty: 30 0RF Continued cholecalciferol (vitamin D3) 1,250 mcg (50,000 unit) tablet 1,250 mcg PO DAILY sodium bicarbonate 650 mg tablet 1,300 mg PO BID lisinopril 20 mg tablet 20 mg PO BID Qty: 180 3RF (DME) ReliOn Prime Test Strips Strip See Rx Instructions .ROUTE .MEDSUPPLY Qty: 10 0RF Rx Instructions: As directed (DME) OneTouch Verio test strips Strip See Rx Instructions .ROUTE .MEDSUPPLY Qty: 100 0RF Rx Instructions: use one strip to test blood sugar two times daily (DME) OneTouch Ultra Blue Test Strip Strip See Rx Instructions .ROUTE .MEDSUPPLY Qty: 100 0RF Rx Instructions: As directed amlodipine 10 mg tablet 10 mg PO DAILY Qty: 90 3RF sildenafil [Viagra] 50 mg tablet 50 - 100 mg PO DAILY PRN (Reason: sexual activity) 30 Days Qty: 10 3RF Rx Instructions: administer 30 minutes to 4 hours before activity metoprolol succinate 25 mg tablet extended release 24 hr 12.5 mg PO DAILY Qty: 45 3RF finasteride 5 mg tablet See Rx Instructions .ROUTE .COMPLEX Qty: 90 3RF Dose Instruction: TAKE 1 TABLET DAILY Rx Instructions: TAKE 1 TABLET DAILY Discontinued levetiracetam 500 mg tablet See Rx Instructions .ROUTE .COMPLEX Qty: 360 0RF Dose Instruction: Take 2 tablets by mouth twice daily. Rx Instructions: Take 2 tablets by mouth twice daily. Referrals: Rafa Farris FNP [Primary Care Provider, Family Practice] - 05/11/25 10:20 am Patient Instructions: Opioid Safety, Patient Portal & Robyn Instructions Activity Restrictions/Additional Instructions: Take pain meds as needed and continue with deep breaths Drink plenty of water and anti-inflammatory medications such as ibuprofen and naproxen until tomorrow You can start taking ibuprofen 400 mg twice a day tomorrow as an adjunct for your pain Return if you have sudden worsening of your pain or difficulty breathing Discharge Attestations Time Spent in Discharge Care*: greater than 30 min Time Spent in Smoking Cessation: Patient is not a smoker Quality Metrics Clinical Quality Measures [ No reported AMI, CVA or VTE this stay] Coding Level of Care Code 30877 Diagnoses Traumatic pneumohemothorax S27.2XXA Pneumonia J18.9 Contusion of lung, closed S27.329A Acute kidney injury N17.9 Time Spent (min) 40
--- NOTE | 2025-04-28 19:07 | P.PN_ITS ---
Subjective 2 Subjective: Patient had a chest tube placed in the emergency department. It was not showing air leak so was placed to waterseal. Overnight waterseal showed only tiny apical pneumothorax. Chest tube was placed clamp and noon films show stability. Chest tube was removed and follow-up chest x-ray with chest tube removed shows no residual pneumothorax Patient has right lung contusion and significant pain. He has been treated with pain meds and incentive spirometry. Patient is certain that he wants to go home today so was discharged with Augmentin and pain meds Patient had elevated creatinine presumably from dehydration and is encouraged to drink plenty of fluid. CK was normal Patient requires 5 L oxygen for home and that is just too much to discharge with Vitals/I&O/Wt Last Vital Signs Temp 97.6 F 04/28/25 12:00 Pulse 72 04/28/25 12:00 Resp 20 H 04/28/25 17:35 BP 135/62 04/28/25 12:00 Pulse Ox 91 04/28/25 18:06 O2 Del Method Nasal Cannula 04/28/25 07:15 O2 Flow Rate 5 04/28/25 18:06 04/28/25 04/28/25 04/28/25 06:59 14:59 22:59 Intake Total 1730 / 2730 1720 / 1720 360 / 2080 Output Total 2500 / 2500 700 / 700 Balance -770 / 230 1020 / 1020 360 / 1380 Weight last 48 hrs Weight 86.319 kg Weight 86.273 kg Weight 86.273 kg Weight 82.1 kg Physical Exam 2 Narrative: General well-developed well-nourished male in no acute cardiopulmonary stress with movement is obviously painful on his right side. CV regular rate and rhythm Lungs clear but decreased breath sounds in the right lower lung field Data 04/27/25 13:47 04/27/25 13:47 Micro: Microbiology 04/27/25 18:11 Blood Culture - Preliminary Blood NEGATIVE TO DATE 04/27/25 17:45 Blood Culture - Preliminary Blood NEGATIVE TO DATE A&P Assessment and plan 1. Traumatic pneumohemothorax: Resolved 2. Pneumonia: Hypoxemic with poor respiratory volume and lung contusion start Unasyn hold discharge 3. Contusion of lung, closed: Patient is not coughing up blood but saturations are decreased. Continue with incentive spirometry and start respiratory care assessment 4. Acute kidney injury: Repeat labs in the morning PDMP PDMP Reviewed: Not Reviewed Attestations 2 Medical Necessity Statement*: Discharge held due to moderately severe hypoxemia respiratory care assessment ambulation and reevaluate for discharge tomorrow Coding Level of Care Code 39661 Diagnoses Traumatic pneumohemothorax S27.2XXA Pneumonia J18.9 Contusion of lung, closed S27.329A Acute kidney injury N17.9 Time Spent (min) 45
[2025-04-28] MEDS: ampicillin-sulbactam 3 GM in sodium chloride 0.9% (plus) 50 ML IV (20:46)
[2025-04-29] VITALS (9 sets, daily range): BP systolic 114–155; BP diastolic 64–83; PULSE 55–65; RESP 14–19; TEMP 36.3–36.8; O2SAT 87–94
[2025-04-29] MEDS: ampicillin-sulbactam 3 GM in sodium chloride 0.9% (plus) 50 ML IV ×3 (01:23→14:32)
[2025-04-29] MEDS: oxyCODONE-APAP 5-325 mg Tablet 1 TAB PO ×2 (01:24→08:40)
[2025-04-29 06:14] LABS: Hematocrit 43.6 % (37-53); Hemoglobin 14.50 g/dL (11.27-16.99); Mean Corpuscular HGB Conc 33.3 g/dL (30-55); Mean Corpuscular Hemoglobin 29.6 pg (27-33); Mean Corpuscular Volume 89.0 fl (82-101); Nucleated Red Blood Cells % 0 %; Platelet Count 230 10^3/cmm (157-399); Red Blood Count 4.90 10^6/uL (3.85-5.65); White Blood Count 9.97 10^3/uL (3.29-11.43)
[2025-04-29 06:27] LABS: Anion Gap 15.8 (5-19); Blood Urea Nitrogen 19 mg/dL (8-23); Calcium 8.8 mg/dL (8.5-10.5); Carbon Dioxide 23 mmol/L (22-29); Chloride 103 mmol/L (98-107); Creatinine Clr Calc Pharmacy 94.3206; Glucose 137 mg/dL (65-115); Osmolality Calculated 288 mOsm/kg (285-295); Potassium 4.8 mmol/L (3.5-5.1); Sodium 137 mmol/L (136-145)
[2025-04-29] MEDS: metoprolol succinate ER (24 HR) 25 mg Tablet 12.5 MG PO (09:05)
--- NOTE | 2025-04-29 10:05 | PC.SOCIAL ---
IMM Updated Updated pt on IMM. No questions voiced. Provided pt a copy. Initialed, dated, & timed a copy & placed in chart.
--- NOTE | 2025-04-29 10:28 | PC.NURSE ---
Verbal orders from Dr. Nieto to discontinue fluids on patient.
--- NOTE | 2025-04-29 19:33 | PC.NURSE ---
Discussed discharge with patient and spouse. Discussed follow up visits and new medications. Patient and spouse verbalized understanding.
== END 2025-04-29 16:10 | disposition home or self-care (01) | DRG 199 ==
LOC: ER 17:26 → ER IP 17:35 → CSU 04-28 00:25 → MEDSURG 04-28 21:00
PROVIDERS: Physician Assistant; Admitting Provider Internal Medicine; Emergency Provider Emergency Medicine; PCP Registered Nurse; Visit Provider Internal Medicine
DX: S27.0XXA Traumatic pneumothorax, initial encounter (principal); J18.9 Pneumonia, unspecified organism; N17.9 Acute kidney failure, unspecified; R09.02 Hypoxemia; E11.9 Type 2 diabetes mellitus without complications; I10 Essential (primary) hypertension; E86.0 Dehydration; I35.0 Nonrheumatic aortic (valve) stenosis; N40.0 Benign prostatic hyperplasia without lower urinary tract symptoms; I25.10 Atherosclerotic heart disease of native coronary artery without angina pectoris; N25.89 Other disorders resulting from impaired renal tubular function; G40.909 Epilepsy, unspecified, not intractable, without status epilepticus; V80.010A Animal-rider injured by fall from or being thrown from horse in noncollision accident, initial encounter; Y93.52 Activity, horseback riding
CPT/HCPCS: 36415; 36416; 71045; 71260; 74177; 80048; 80053; 82550; 82962; 85025; 87040; 93005; 94760; 96365; 96375; 96376; 99285; J0295; J0456; J0696; J1171; J1885; J2060; J2270; J2405; J7030; J7050; J9999

== ENCOUNTER → 2025-09-10 14:34 | Outpatient (BNVA) | payer MEDICARE, OTHER, SELFPAY | PROVIDERS: PCP Registered Nurse; Visit Provider Internal Medicine Cardiovascular Disease | DX: I35.0 Nonrheumatic aortic (valve) stenosis (principal); I10 Essential (primary) hypertension; I25.10 Atherosclerotic heart disease of native coronary artery without angina pectoris; Z87.891 Personal history of nicotine dependence; Z95.2 Presence of prosthetic heart valve | CPT/HCPCS: 99214 ==

== ENCOUNTER → 2025-09-14 09:57 | Outpatient (BNVA) | payer MEDICARE, OTHER, SELFPAY | PROVIDERS: PCP Registered Nurse; Visit Provider Registered Nurse | DX: E11.9 Type 2 diabetes mellitus without complications (principal) | CPT/HCPCS: 80053; 80061; 83036; 85025 ==

== ENCOUNTER 2025-09-28 11:10 | Outpatient (CLI) | payer MEDICARE, OTHER, SELFPAY ==
[2025-09-28 12:30] LABS: Anion Gap 16.5 (5-19); Blood Urea Nitrogen 31 mg/dL (8-23); Calcium 9.7 mg/dL (8.5-10.5); Carbon Dioxide 23 mmol/L (22-29); Chloride 103 mmol/L (98-107); Glucose 138 mg/dL (65-115); NT Pro B Type Natriuretic Pept 205 pg/mL (0-125); Osmolality Calculated 295 mOsm/kg (285-295); Potassium 4.5 mmol/L (3.5-5.1); Sodium 138 mmol/L (136-145)
== END 2025-09-28 11:11 | disposition home or self-care (01) ==
LOC: LAB 11:13
PROVIDERS: PCP Registered Nurse; Visit Provider Internal Medicine Cardiovascular Disease
DX: R00.0 Tachycardia, unspecified (principal); N52.1 Erectile dysfunction due to diseases classified elsewhere; I10 Essential (primary) hypertension; I25.10 Atherosclerotic heart disease of native coronary artery without angina pectoris
CPT/HCPCS: 36415; 80048; 83880; 86850; 86900

== ENCOUNTER 2025-09-30 06:57 | Outpatient (CLI) | payer MEDICARE, OTHER, SELFPAY ==
[2025-09-30] VITALS (12 sets, daily range): BP systolic 116–154; BP diastolic 62–88; PULSE 53–63; RESP 16–18; TEMP 36.5; O2SAT 93–97; BMI 24.9
--- NOTE | 2025-09-30 07:30 | XACV_ITS ---
Exam Room: 2 Ht: 183 cm Wt: 83 kg BSA: 2.07 m2 Gender: Male : 1950 Any Known Allergies: No known allergies Exam Priority: Routine Procedure(s): Procedure Description: Diagnostic procedure Procedure Description: Left Heart Catheterization Procedure Description: Left ventriculography Procedure Description: Coronary Angiography Vera BORWNE; Diagnostic Cath Status: Elective Conclusions 1. Left ventricular ejection fraction appeared to be low normal 50 to 55% Peak to peak gradient 18 mmHg mean gradient of 20 mmHg Suggestive of severe aortic valve stenosis. 2. Nonobstructive coronary artery disease. Recommendations * 1-Return to [facility] for close monitoring and routine left heart cath 2-Referred for TAVR 3-Statin with LDL goal of 70 mg/dl, aspirin 81 mg p.o. daily for life long 4-Optimal medical management for SD 5-Follow up with Dr. Gamez in four weeks and establish care with primary care physician. Diagnostic RX Recommendation: other cardiac therapy w/o CABG/PCI Ventriculography Ejection Fraction: 55.0 % Pressures Phase:Rest AO : 118 / 53 ( 81 ) @ 10:19:00 AM 138 / 69 ( 99 ) @ 10:33:00 AM 139 / 69 ( 99 ) @ 10:33:00 AM LV : 149 / -4 / 18 @ 10:32:00 AM 145 / -15 / 8 @ 10:32:00 AM 156 / -2 / 18 @ 10:33:00 AM Valves Phase:DefaultPhase AV : 18.0 @ 10:40:08 AM AV Mean Gradient: 20.0 @ 10:40:08 AM Clinical Evaluation EBL: 5mL-10mL Procedural Details Procedure Consent Obtained. Admit Source: Out Patient. Pre-Procedure Time Out. Identified patient by full name and date of as verbalized by the patient/guarantor. Does the consent match the physician's order: Yes. Accurate & Complete Informed Consent: Yes. Inpatient/Outpatient History & Physical on Chart: Yes. If H&P is completed, is and addenduem needed: No; If yes, is the addendum complete: N/A. Visualize and Verify Site with Patient/Guarantor: N/A. Relevant Radiology Images available: Yes. The risks, benefits, and alternatives of sedation and/or procedure were discussed by physician. The patient agrees to continue. Procedure started. [facility] Clinical Fraility Score: 3: Managing Well. Resaw Tailer Indications: Valvular Disease. Chest Pain Symptom Assessment: Typical Angina Symptoms. Correct patient, site and procedure confirmed by cath team. Current diagnosis: Aortic Stenosis, CAD, HTN. PERRLA. Strong, equal hand wheel roller bilaterally. Lungs clear x 5 lobes. IV Site on Arrival: 20 gauge in the right anticubital. IV Fluids: 0.9% NaCl at KVO. 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 Pre Procedural Pulses: bilateral radial was 3+. Pre Procedural Pulses: bilateral posterior tibial was 2+. Pre Procedural Pulses: bilateral dorsalis pedis was Doppled. Oxygen started at 2liters/min via nasal canula. right radial was prepped with chloroprep then draped in the usual sterile fashion. right groin was prepped with chloroprep then draped in the usual sterile fashion. Physician notified. Baseline sample Acquired. HR: 58 BPM. Physician arrived. Physician scrubbed in. Immediate Pre-Procedure Time Out. Correct Patient: Yes; Correct Procedure: Yes; Correct Site: Yes; Correct Patient Position: Yes; Correct Supplies: Yes; Dried Flammable Prep: No; Blood Products Available: Yes;. Lidocaine 1% infiltrated to the right radial. Arterial access obtained. A 5 singaporean Benito catheter in over wire. Wire out. Hand injection through catheter to visualize radial artery. Glidewire in. Unable to advance catheter. Wire out. Hand injection through catheter. Glidewire in through catheter. Glidewire out. Multiple views taken of left coronary artery. Catheter redirected to the RCA. Multiple views taken of right coronary artery. Catheter removed over the glide wire. A 5 singaporean Angled Pig catheter in over wire. Wire out. EDP Sample taken: LV 149/-5,18; HR: 56 BPM; SpO2: 97%. LV gram performed in ROSA @ 10 mL/second for a total of 30 mL. EDP Sample taken: LV 145/-16,8; HR: 56 BPM; SpO2: 97%. Pullback taken: LV 156/-2,18; AO 138/69(99); Mean: 20mmHg, Peak to Peak: 18mmHg, SEP: 16sec/min; HR: 54 BPM; SpO2: 95%. Catheter removed over the standard wire. A TR Band was successful obtaining hemostatsis at the Right Radial artery insertion site. Post Procedure: Pulses reassessed and unchanged. PERRLA. Strong, equal hand wheel roller bilaterally. No VTE prophylaxis required. Medication's Wasted: Lidocaine 1% = 18 mL. Medication's Wasted: Nitro = 49.6 mg. Medication's Wasted: Heparin = 1000 units. Medication's Wasted: Other = Fetnanyl 50mcg. Total IV fluids: 50 mL. Post-op diagnosis: Non-obstructive CAD, Moderate to severe aortic valve stenosis. Complications: None. Estimated blood loss: 5mL-10mL. Responsiveness - Normal response to verbal stimuli; alert and oriented, PERRLA. Airway - Unaffected, no intervention required; spontaneous ventilation. Circulation: W/N/L, pulses unchanged. Nausea/Vomiting: No. Procedure completed. Patient transferred by wheelchair to CPRU. Vital chart was stopped. Access Site Site: Right Radial artery Sheath Size: 6 Fr Hemostasis Method: TR Band Hemostasis Success: Successful Procedure Medications Start: 9:55 AM Stop: 9:55 AM Medication: Versed Amount: 1 mg Route: I.V. Start: 9:55 AM Stop: 9:55 AM Medication: Fentanyl Amount: 50 mcg Route: I.V. Start: 10:07 AM Stop: 10:07 AM Medication: Nitrogylcerin Amount: 200 mcg Route: I.A. Start: 10:11 AM Stop: 10:11 AM Medication: Nitrogylcerin Amount: 200 mcg Route: I.A. Start: 10:18 AM Stop: 10:18 AM Medication: Versed Amount: 1 mg Route: I.V. Start: 10:19 AM Stop: 10:19 AM Medication: Heparin Amount: 5000 units Route: I.V. I, the attending physician, have reviewed and verified all procedure medications. Yes, all medications given per verbal order History/Risk Factors Hypertension: Yes Dyslipidemia: No Peripheral Arterial Disease (PAD): No Myocardial Infarction (SD): No Obesity: No Renal Disease: No Tobacco Use: Former Prior Interventions PCI: No CABG: No Valve Surgery: No Report Signatures Finalized by Jag Gamez MD on 10/11/2025 08:25 PM
--- NOTE | 2025-09-30 09:52 | W.PM.OPSUD ---
Surgery/Procedure H&P Update DATE OF PROCEDURE: September 30, 2025 DATE H&P PERFORMED: 09/10/25 H&P UPDATE INFORMATION: I have reviewed H&P completed within last 30 days and I have examined patient prior to procedure PREOP DIAGNOSIS: Aortic Valve stenosis severe, prevalve surgery PRIMARY INDICATION FOR PROCEDURE: All risk benefit and alternative of the procedure has been explainedto the patient, patient understant 2% risk of , stoke major bleed,patient understand 5% risk of contrast inducednephropathy, minor bleeding hematoma, pseudoaneurysm, urgent emergnent vascular or by pass surgery PLANNED PROCEDURE: Operation Date: 09/30/25 08:30 Proposed Procedures p Cardiac Catheterization(Left) - Jag Gamez MD PATIENT REASSESSED PRIOR TO SEDATION, WITH NO CHANGE NOTED: Yes PHYSICAL EXAM: alert, oriented x 3, clear to auscultation bilaterally and operative site marked AIRWAY EVAL/ANESTHESIA PLAN: ASA II, Risks, benefits & alternatives of sedation and/or procedure discussed and Patient agrees to continue as planned
--- NOTE | 2025-09-30 10:56 | PC.NURSE ---
Received the patient back from the catholic priest via COT s/p Diagnostic [facility]. A & 0 x 3. cardiac monitor technician placed and vital signs obtained. TR band intact to the right wrist. No bleeding or hematoma noted. Palpable radial pulse. No other assessment changes noted from pre cath assessment. Family at bedside. No concerns voiced at this time.
--- NOTE | 2025-09-30 11:48 | PC.NURSE ---
Letting the air out of the TR band per protocol. No other assessment changes at this time. Family remains at bedside.
--- NOTE | 2025-09-30 12:45 | PC.NURSE ---
TR band off per protocol. Right wrist area cleansed with warm water and patted dry. A large band aid was applied to the site and loosely secured with coban. No bleeding or hematoma noted. Palpable radial pulse. Patient tolerated well.
--- NOTE | 2025-09-30 13:39 | PC.NURSE ---
Patient discharged home via wheelchair with significant other and all belongings.
== END 2025-09-30 06:58 | disposition home or self-care (01) ==
PROVIDERS: PCP Registered Nurse; Visit Provider Internal Medicine Cardiovascular Disease
DX: I35.0 Nonrheumatic aortic (valve) stenosis (principal); Z95.2 Presence of prosthetic heart valve; I10 Essential (primary) hypertension; I25.10 Atherosclerotic heart disease of native coronary artery without angina pectoris; Z87.891 Personal history of nicotine dependence; R01.1 Cardiac murmur, unspecified; E11.9 Type 2 diabetes mellitus without complications; G40.909 Epilepsy, unspecified, not intractable, without status epilepticus; R00.0 Tachycardia, unspecified
CPT/HCPCS: 36415; 93458; 96365; 99152; 99153; C1769; C1887; C1894; J1644; J2250; J3010; J3490; J7030; J9999; Q0163; Q9967